=== PATIENT | male | born 1955 | race Caucasian/White ===

== ENCOUNTER 2020-06-05 15:19 | Inpatient (IN) | payer BC ==
[2020-06-05 16:14] LABS: ANION GAP 15.9 mEq/L (7-13); CHLORIDE,CL 94 mmol/L (98-107); SODIUM,NA 131 mmol/L (136-145)
[2020-06-05] MEDS ORDERED: Iopamidol 755 Mg/ML 100 ML Bottle IVPUSH ONE (16:58)
--- NOTE | 2020-06-05 17:38 | CT ---
EXAMINATION: Chest w Cont SEX: Male AGE: 65 years CLINICAL HISTORY: 65-year-old male ER with coughing who is 10 days post "Covid Infection". Abnormal serum D dimer (1900). No comparison imaging exams of the chest immediately available. Scan technique: Volume acquisition of data from the chest (bony thorax, lungs and mediastinum) obtained during intravenous administration of 66 cc nonionic Isovue 370 contrast at 5 cc/s via injector (PE study) while lying supine on the Siemens multislice scanner [place], [place]. All data archived in the PACS system for storage, reformatting axial/sagittal/coronal planes and study (lung, mediastinal and bone windows). Interpretation: ABNORMAL. 1. *Extensive interstitial consolidation extending peripherally throughout both lung padron. Appearance consistent with "COVID pneumonia". 2. No lung mass or underlying hilar/mediastinal lymphadenopathy. 3. Prominent cardiac silhouette but no pericardial effusions. No pulmonary vascular congestion, alveolar edema or dependent pleural fluid accumulation (pleural effusions). 4. Normal caliber thoracic aorta. Mild kyphosis, multilevel disc disease and hypertrophic spondylosis dorsal spine. No pathologic skeletal lesion, thoracic fracture or dislocation. 5. Upper abdominal viscera unremarkable. 6. No pneumothorax or pneumomediastinum.
--- NOTE | 2020-06-05 18:03 | EDM.PDOC ---
Scribed by Yeni Conte 06/05/20 [id number] for Cesia Donahue NP ED HPI GENERAL MEDICAL PROBLEM - General Stated Complaint: SENT FROM [facility] Time Seen by Provider: 06/05/20 16:55 Source of Information: Reports: Patient, RN Notes Reviewed History Limitations: Reports: No Limitations - History of Present Illness INITIAL COMMENTS - FREE TEXT/NARRATIVE: Patient is a 65-year-old male who presents to ED with complaint that his symptoms began on 05/22/20. He was tested on 05/26/20. He is off quarantine. He has increased shortness of breath for the last few days. He has had chills on and off. He has nausea and decreased appetite. No vomiting or diarrhea. Onset: Gradual Duration: Constant Location: Reports: Chest Quality: Reports: Ache Severity: Severe Improves with: Reports: None Worsens with: Reports: None Associated Symptoms: Reports: No Other Symptoms - Related Data Allergies Allergy/AdvReac Type Severity Reaction Status Date / Time No Known Allergies Allergy Verified 06/05/20 15:51 Home Meds: Home Meds Lisinopril 5 mg PO DAILY 08/03/14 [History] atorvaSTATin Calcium [Atorvastatin Calcium] 20 mg PO BEDTIME 08/03/14 [History] glyBURIDE [Glyburide] 10 mg PO BIDMEALS 08/03/14 [History] metFORMIN [Glucophage] 1,000 mg PO BIDMEALS 08/03/14 [History] Aspirin [Aspirin EC] 81 mg PO DAILY 06/05/20 [History] Canagliflozin [Invokana] 100 mg PO DAILY 06/05/20 [History] Famciclovir [Famvir] 1,500 mg PO ONETIME 06/05/20 [History] Ondansetron [Zofran ODT] 4 mg PO Q6HR PRN 06/05/20 [History] amLODIPine Besylate [Amlodipine Besylate] 5 mg PO DAILY 06/05/20 [History] Past Medical History Other HEENT History: wears glasses ED ROS GENERAL - Review of Systems Review Of Systems: Comprehensive ROS is negative, except as noted in HPI. ED EXAM, GENERAL - Physical Exam Exam: See Below Exam Limited By: No Limitations General Appearance: Lethargic (and weak) Eye Exam: Bilateral Eye: EOMI, Normal Inspection, PERRL Ears: Normal External Exam, Normal Canal, Hearing Grossly Normal, Normal TMs Nose: Normal Inspection, Normal Mucosa, No Blood Throat/Mouth: Normal Inspection, Normal Lips, Normal Teeth, Normal Gums, Normal Oropharynx, Normal Voice, No Airway Compromise Head: Atraumatic, Normocephalic Neck: Normal Inspection, Supple, Non-Tender, Full Range of Motion Respiratory/Chest: Crackles (throughout) Cardiovascular: Systolic Murmur GI/Abdominal: Normal Bowel Sounds, Soft, Non-Tender, No Organomegaly, No Distention, No Abnormal Bruit, No Mass (Male) Exam: Deferred Rectal (Males) Exam: Deferred Back Exam: Normal Inspection, Full Range of Motion, NT Extremities: Normal Inspection, Normal Range of Motion, Non-Tender, Normal Capillary Refill, No Pedal Edema Neurological: Alert, Oriented, CN II-XII Intact, Normal Cognition, Normal Gait, Normal Reflexes, No Motor/Sensory Deficits Psychiatric: Normal Affect, Normal Mood Skin Exam: Warm, Dry, Intact, Normal Color, No Rash Lymphatic: No Adenopathy #1 Interpretation EKG Date: 06/05/20 Time: 15:57 Rhythm: Other (sinus rhythm) Rate (Beats/Min): 89 [place]: Other (left anterior fascicular block) P-Wave: Present QRS: Other (abnormal R-wave progression, late transition) ST-T: Normal QT: Normal EKG Interpretation Comments: left ventricular hypertrophy Course - Vital Signs Last Recorded V/S: Last Vital Signs Temp 99 F 06/05/20 15:30 Pulse 95 06/05/20 15:30 Resp 28 H 06/05/20 15:30 BP 153/77 H 06/05/20 15:30 Pulse Ox 95 06/05/20 15:30 - Orders/Labs/Meds Orders: Active Orders 24 hr Category Date Time Status Admission Diagnosis [ADT] Routine ADT 06/05/20 17:54 Ordered Admission Status [Patient Status] [ADT] Routine ADT 06/05/20 17:54 Active EKG Documentation Completion [RC] STAT Care 06/05/20 15:46 Active CULTURE BLOOD [BC] Stat Lab 06/05/20 15:42 Received Blood Culture x2 Reflex Set [OM.PC] Stat Oth 06/05/20 15:46 Ordered Labs: Laboratory Tests 04/29/21 04/29/21 04/29/21 Range/Units 15:42 15:42 15:42 WBC 8.2 (5.0-10.0) 10^3/uL RBC 5.15 (4.6-6.2) 10^6/uL Hgb 15.8 (14.0-18.0) g/dL Hct 46.3 (40.0-54.0) % MCV 89.9 (80-100) fL MCH 30.7 (27.0-34.0) pg MCHC 34.1 (33.0-35.0) g/dL Plt Count 400 (150-450) 10^3/uL Neut % (Auto) 84.5 H (42.2-75.2) % Lymph % (Auto) 9.7 L (20.5-50.1) % [place] % (Auto) 5.3 (2-8) % Eos % (Auto) 0.4 L (1.0-3.0) % Baso % (Auto) 0.1 (0.0-1.0) % D-Dimer, Quantitative 1900 H (0-400) ng/mL Sodium 131 L (136-145) mmol/L Potassium 3.9 (3.5-5.1) mmol/L Chloride 94 L (98-107) mmol/L Carbon Dioxide 25 (21-32) mmol/L Anion Gap 15.9 H (7-13) mEq/L BUN 16 (7-18) mg/dL Creatinine 0.88 (0.70-1.30) mg/dL Est Cr Clr Drug Dosing TNP Estimated GFR (MDRD) > 60 BUN/Creatinine Ratio 18.2 (No establ ref range) Glucose 110 H (70-99) mg/dL Lactic Acid (0.4-2.0) mmol/L Calcium 8.5 (8.5-10.1) mg/dL Total Bilirubin 0.7 (0.2-1.0) mg/dL AST 40 H (15-37) U/L ALT 42 (16-63) U/L Alkaline Phosphatase 84 (46-116) U/L Troponin I < 0.017 (0.000-0.056) ng/mL C-Reactive Protein 18.2 H (0.0-0.9) mg/dL Total Protein 7.9 (6.4-8.2) g/dL Albumin 2.9 L (3.4-5.0) g/dL Globulin 5.0 Albumin/Globulin Ratio 0.58 06/05/20 Range/Units 15:42 WBC (5.0-10.0) 10^3/uL RBC (4.6-6.2) 10^6/uL Hgb (14.0-18.0) g/dL Hct (40.0-54.0) % MCV (80-100) fL MCH (27.0-34.0) pg MCHC (33.0-35.0) g/dL Plt Count (150-450) 10^3/uL Neut % (Auto) (42.2-75.2) % Lymph % (Auto) (20.5-50.1) % [place] % (Auto) (2-8) % Eos % (Auto) (1.0-3.0) % Baso % (Auto) (0.0-1.0) % D-Dimer, Quantitative (0-400) ng/mL Sodium (136-145) mmol/L Potassium (3.5-5.1) mmol/L Chloride (98-107) mmol/L Carbon Dioxide (21-32) mmol/L Anion Gap (7-13) mEq/L BUN (7-18) mg/dL Creatinine (0.70-1.30) mg/dL Est Cr Clr Drug Dosing Estimated GFR (MDRD) BUN/Creatinine Ratio (No establ ref range) Glucose (70-99) mg/dL Lactic Acid 1.5 (0.4-2.0) mmol/L Calcium (8.5-10.1) mg/dL Total Bilirubin (0.2-1.0) mg/dL AST (15-37) U/L ALT (16-63) U/L Alkaline Phosphatase (46-116) U/L Troponin I (0.000-0.056) ng/mL C-Reactive Protein (0.0-0.9) mg/dL Total Protein (6.4-8.2) g/dL Albumin (3.4-5.0) g/dL Globulin Albumin/Globulin Ratio Meds: Medications Discontinued Medications Generic Name Dose Route Start Last Admin Trade Name Freq PRN Reason Stop Dose Admin Iopamidol 100 ml 06/05/20 16:58 06/05/20 17:25 Iopamidol 755 Mg/Ml 100 Ml Bottle IVPUSH 06/05/20 16:59 66 ml ONETIME ONE Administration - Radiology Interpretation Free Text/Narrative:: Chest CT: Extensive interstitial consolidation extending peripherally throughout both lung padron. Appearance consistent with "COVID pneumonia". No lung mass or underlying hilar/mediastinal lymphadenopathy. Prominent cardiac silhouette but no pericardial effusions. No pulmonary vascular congestion, alveolar edema or dependent pleural fluid accumulation (pleural effusions). Normal caliber thoracic aorta. Mild kyphosis, multilevel disc disease and hypertrophic spondylosis dorsal spine. No pathologic skeletal lesion, thoracic fracture or dislocation. Upper abdominal viscera unremarkable. No pneumothorax or pneumomediastinum. See rad report. - Re-Assessments/Exams Free Text/Narrative Re-Assessment/Exam: 06/05/20 18:01 Discussed patient case with Dr. Hand who agreed to accept the patient for inpatient admission. Departure - Departure Time of Disposition: 18:02 Disposition: Admitted As Inpatient 67 Condition: Fair Clinical Impression: Pneumonia due to COVID-19 virus - Discharge Information *PRESCRIPTION DRUG MONITORING PROGRAM REVIEWED*: No *COPY OF PRESCRIPTION DRUG MONITORING REPORT IN PATIENT SOFIA: No Sepsis Event Note (ED) - Focused Exam Vital Signs: Vital Signs Temp Pulse Resp BP Pulse Ox 06/05/20 15:30 99 F 95 28 H 153/77 H 95 - My Orders Last 24 Hours: My Active Orders 06/05/20 15:42 CULTURE BLOOD [BC] Stat 06/05/20 15:46 EKG Documentation Completion [RC] STAT Blood Culture x2 Reflex Set [OM.PC] Stat 06/05/20 17:54 Admission Diagnosis [ADT] Routine Admission Status [Patient Status] [ADT] Routine - Assessment/Plan Last 24 Hours: My Active Orders 06/05/20 15:42 CULTURE BLOOD [BC] Stat 06/05/20 15:46 EKG Documentation Completion [RC] STAT Blood Culture x2 Reflex Set [OM.PC] Stat 06/05/20 17:54 Admission Diagnosis [ADT] Routine Admission Status [Patient Status] [ADT] Routine I have read and agree with the documentation that has been completed regarding this visit. By signing this record, I attest that the documentation was comp leted in my physical presence and is an accurate record of the encounter.
[2020-06-05] MEDS ORDERED: Ketorolac 30 MG/ML SDV IVPUSH PRN (18:13)
[2020-06-05] MEDS ORDERED: Acetaminophen 325 MG Tab PO PRN (18:13)
[2020-06-05] MEDS ORDERED: Ondansetron 4 MG Tab.DIS PO PRN (18:13)
[2020-06-05] MEDS ORDERED: REMDESIVIR 200 MG in Sodium Chloride 0.9% 250 ML IV ONE (18:17)
[2020-06-05] MEDS: Enoxaparin 40 MG/0.4 ML Syringe SUBCUT SCH (19:46)
[2020-06-05] MEDS: Sodium Chloride 0.9% 10 ML Syringe FLUSH PRN (19:48)
[2020-06-05] MEDS: Benzocaine/Cetylpyridinium/Menthol Lozenge MUCMEM PRN ×2 (22:56→23:33)
[2020-06-06 06:30] LABS: CHLORIDE,CL 95 mmol/L (98-107); SODIUM,NA 132 mmol/L (136-145)
[2020-06-06] MEDS: Enoxaparin 40 MG/0.4 ML Syringe SUBCUT SCH (08:27)
[2020-06-06] MEDS ORDERED: Enoxaparin 40 MG/0.4 ML Syringe SUBCUT ONE (09:15)
--- NOTE | 2020-06-06 09:24 | PCM.HP ---
H&P History of Present Illness - General Date of Service: 06/05/20 Admit Problem/Dx: Admission Diagnosis/Problem Admission Diagnosis/Problem Pneumonia - History of Present Illness Initial Comments - Free Text/Narative: Reuben is a 65-year-old man who presented to the ER this afternoon with 1 day history of worsening shortness of breath and severe cough. He and his were found to be positive for COVID-19 on May 26, 2020. He states that the first few days after this, he did have more cough and cold type symptoms, then started to feel somewhat better. However, about 24 hours ago, he started feeling very fatigued, having some body aches and chills, and now this morning developed severe shortness of breath. They were both seen at [facility] clinic yesterday, were told there was no issues and were sent home. His reports that they were not given any education as far as what to watch out for for COVID-19, were not given any kind of supplies at home including albuterol. Reuben reports a past medical history of type 2 diabetes mellitus, for which he is on glyburide, Metformin, and Invokana; essential hypertension, for which he is on lisinopril and amlodipine. Abdominal Pain Score (Numeric/FACES): 0 - Related Data Allergies/Adverse Reactions: Allergies Allergy/AdvReac Type Severity Reaction Status Date / Time No Known Allergies Allergy Verified 06/05/20 21:00 Home Medications: Home Meds Lisinopril 5 mg PO DAILY 08/03/14 [History] atorvaSTATin Calcium [Atorvastatin Calcium] 20 mg PO BEDTIME 08/03/14 [History] glyBURIDE [Glyburide] 10 mg PO BIDMEALS 08/03/14 [History] metFORMIN [Glucophage] 1,000 mg PO BIDMEALS 08/03/14 [History] Aspirin [Aspirin EC] 81 mg PO DAILY 06/05/20 [History] Canagliflozin [Invokana] 100 mg PO DAILY 06/05/20 [History] Ondansetron [Zofran ODT] 4 mg PO Q8H PRN 06/05/20 [History] amLODIPine Besylate [Amlodipine Besylate] 5 mg PO DAILY 06/05/20 [History] Past Medical History HEENT History: Reports: Hard of Hearing, Impaired Vision Other HEENT History: wears glasses Cardiovascular History: Reports: High Cholesterol, Hypertension Musculoskeletal History: Reports: Arthritis, Other (See Below) Other Musculoskeletal History: degenerative disc disease. lumbar disc herniation w/radiculopathy. stenosis of lumbar region Endocrine/Metabolic History: Reports: Diabetes, Type II - Infectious Disease History Infectious Disease History: Reports: Novel Coronavirus - Past Surgical History GI Surgical History: Reports: Colonoscopy Male Surgical History: Reports: Vasectomy Social & Family History - Family History Family Medical History: No Pertinent Family History - Tobacco Use Tobacco Use Status *Q: Never Tobacco User Second Hand Smoke Exposure: No - Caffeine Use Caffeine Use: Reports: Coffee - Alcohol Use Days Per Week of Alcohol Use: 3 Number of Drinks Per Day: 3 Total Drinks Per Week: 9 - Recreational Drug Use Recreational Drug Use: No H&P Review of Systems - Review of Systems: Review Of Systems: See Below Review of Systems Comment:: General: See HPI HEENT: No headache or vertigo, no difficulty with speaking or swallowing Cardiovascular: No chest pain or palpitations, no orthopnea or PND Respiratory: See HPI Gastrointestinal: No nausea or vomiting, no diarrhea or constipation, no hematochezia or melena Endocrine: No abnormal rashing or bruising, no intolerance to heat or cold Integumentary: No lesions or rashes Musculoskeletal: No myalgias or arthralgias Psychological: No increased anxiety or depressive type symptoms Rest of the review of systems is complete and negative Exam - Exam Exam: See Below - Vital Signs Vital Signs: Last Vital Signs Temp 98.9 F 06/06/20 08:00 Pulse 83 06/06/20 08:00 Resp 28 H 06/06/20 08:00 BP 146/69 H 06/06/20 08:00 Pulse Ox 97 06/06/20 08:00 Weight: 174 lb - Exam Physical Exam Comments:: General: Reuben is a 65-year-old man who appears quite uncomfortable with his breathing, but who does not appear to actually be in respiratory distress. His respiratory rate is around 20-25, he is not using any accessory muscles to breathe. Oropharynx is clear, mucous membranes are moist Neck: Supple, no lymphadenopathy Heart: Regular rate and rhythm, 1 out of 6 systolic murmur heard over the left sternal border Lungs: Widespread rhonchi and crackles in both bases. He has fairly good lung sounds at the apices, no expiratory wheezing heard PA and lateral chest x-ray done in the ER shows a large amount of infiltrate and congestion As his D-dimer was 1900, ER did do a CT of the chest, it did not show any emboli or areas of pneumonia - Patient Data Lab Results Last 24 hrs: Laboratory Results - last 24 hr 06/05/20 06/05/20 06/05/20 Range/Units 15:42 15:42 15:42 WBC 8.2 (5.0-10.0) 10^3/uL RBC 5.15 (4.6-6.2) 10^6/uL Hgb 15.8 (14.0-18.0) g/dL Hct 46.3 (40.0-54.0) % MCV 89.9 (80-100) fL MCH 30.7 (27.0-34.0) pg MCHC 34.1 (33.0-35.0) g/dL Plt Count 400 (150-450) 10^3/uL Neut % (Auto) 84.5 H (42.2-75.2) % Lymph % (Auto) 9.7 L (20.5-50.1) % [place] % (Auto) 5.3 (2-8) % Eos % (Auto) 0.4 L (1.0-3.0) % Baso % (Auto) 0.1 (0.0-1.0) % D-Dimer, Quantitative 1900 H (0-400) ng/mL Sodium 131 L (136-145) mmol/L Potassium 3.9 (3.5-5.1) mmol/L Chloride 94 L (98-107) mmol/L Carbon Dioxide 25 (21-32) mmol/L Anion Gap 15.9 H (7-13) mEq/L BUN 16 (7-18) mg/dL Creatinine 0.88 (0.70-1.30) mg/dL Est Cr Clr Drug Dosing TNP Estimated GFR (MDRD) > 60 BUN/Creatinine Ratio 18.2 (No establ ref range) Glucose 110 H (70-99) mg/dL POC Glucose (70-99) mg/dL Lactic Acid (0.4-2.0) mmol/L Calcium 8.5 (8.5-10.1) mg/dL Total Bilirubin 0.7 (0.2-1.0) mg/dL AST 40 H (15-37) U/L ALT 42 (16-63) U/L Alkaline Phosphatase 84 (46-116) U/L Troponin I < 0.017 (0.000-0.056) ng/mL C-Reactive Protein 18.2 H (0.0-0.9) mg/dL Total Protein 7.9 (6.4-8.2) g/dL Albumin 2.9 L (3.4-5.0) g/dL Globulin 5.0 Albumin/Globulin Ratio 0.58 06/05/20 06/06/20 06/06/20 Range/Units 15:42 05:45 05:45 WBC (5.0-10.0) 10^3/uL RBC (4.6-6.2) 10^6/uL Hgb (14.0-18.0) g/dL Hct (40.0-54.0) % MCV (80-100) fL MCH (27.0-34.0) pg MCHC (33.0-35.0) g/dL Plt Count (150-450) 10^3/uL Neut % (Auto) (42.2-75.2) % Lymph % (Auto) (20.5-50.1) % [place] % (Auto) (2-8) % Eos % (Auto) (1.0-3.0) % Baso % (Auto) (0.0-1.0) % D-Dimer, Quantitative 2300 H (0-400) ng/mL Sodium 132 L (136-145) mmol/L Potassium 4.0 (3.5-5.1) mmol/L Chloride 95 L (98-107) mmol/L Carbon Dioxide 24 (21-32) mmol/L Anion Gap 17.0 H (7-13) mEq/L BUN 16 (7-18) mg/dL Creatinine 0.83 (0.70-1.30) mg/dL Est Cr Clr Drug Dosing 86.99 Estimated GFR (MDRD) > 60 BUN/Creatinine Ratio 19.3 (No establ ref range) Glucose 120 H (70-99) mg/dL POC Glucose (70-99) mg/dL Lactic Acid 1.5 (0.4-2.0) mmol/L Calcium 8.0 L (8.5-10.1) mg/dL Total Bilirubin 0.8 (0.2-1.0) mg/dL AST 38 H (15-37) U/L ALT 41 (16-63) U/L Alkaline Phosphatase 79 (46-116) U/L Troponin I (0.000-0.056) ng/mL C-Reactive Protein (0.0-0.9) mg/dL Total Protein 6.3 L (6.4-8.2) g/dL Albumin 2.7 L (3.4-5.0) g/dL Globulin 3.6 Albumin/Globulin Ratio 0.75 04// Range/Units 08:18 WBC (5.0-10.0) 10^3/uL RBC (4.6-6.2) 10^6/uL Hgb (14.0-18.0) g/dL Hct (40.0-54.0) % MCV (80-100) fL MCH (27.0-34.0) pg MCHC (33.0-35.0) g/dL Plt Count (150-450) 10^3/uL Neut % (Auto) (42.2-75.2) % Lymph % (Auto) (20.5-50.1) % [place] % (Auto) (2-8) % Eos % (Auto) (1.0-3.0) % Baso % (Auto) (0.0-1.0) % D-Dimer, Quantitative (0-400) ng/mL Sodium (136-145) mmol/L Potassium (3.5-5.1) mmol/L Chloride (98-107) mmol/L Carbon Dioxide (21-32) mmol/L Anion Gap (7-13) mEq/L BUN (7-18) mg/dL Creatinine (0.70-1.30) mg/dL Est Cr Clr Drug Dosing Estimated GFR (MDRD) BUN/Creatinine Ratio (No establ ref range) Glucose (70-99) mg/dL POC Glucose 112 H (70-99) mg/dL Lactic Acid (0.4-2.0) mmol/L Calcium (8.5-10.1) mg/dL Total Bilirubin (0.2-1.0) mg/dL AST (15-37) U/L ALT (16-63) U/L Alkaline Phosphatase (46-116) U/L Troponin I (0.000-0.056) ng/mL C-Reactive Protein (0.0-0.9) mg/dL Total Protein (6.4-8.2) g/dL Albumin (3.4-5.0) g/dL Globulin Albumin/Globulin Ratio Result Diagrams: 06/05/20 15:42 06/06/20 05:45 *Q Meaningful Use (ADM) - VTE Risk Assess *Q Each Risk Factor Represents 2 Points: Age 60 - 74 Years, Patient confined to bed greater than 72 hours Total Score 2 Point Risk Factors: 4 - Problem List (1) Pneumonia due to COVID-19 virus SNOMED Code(s): 738131532442962205 ICD Code: U07.1 - COVID-19; J12.82 - PNEUMONIA DUE TO CORONAVIRUS DISEASE 2018 Status: Acute Priority: High Current Visit: Yes Onset Date: ~ 06/04/20 (2) Essential hypertension SNOMED Code(s): 44326545 ICD Code: I10 - ESSENTIAL (PRIMARY) HYPERTENSION Status: Chronic Current Visit: Yes (3) Type 2 diabetes mellitus SNOMED Code(s): 72118576 ICD Code: E11.9 - TYPE 2 DIABETES MELLITUS WITHOUT COMPLICATIONS Status: Chronic Priority: Medium Current Visit: Yes (4) Hyperlipidemia associated with type 2 diabetes mellitus SNOMED Code(s): 508047006524 ICD Code: E11.69 - TYPE 2 DIABETES MELLITUS WITH OTHER SPECIFIED COMPLICATION; E78.5 - HYPERLIPIDEMIA, UNSPECIFIED Status: Chronic Priority: Medium Current Visit: Yes Problem List Initiated/Reviewed/Updated: Yes Orders Last 24hrs: Active Orders 24 hr Category Date Time Status Admission Diagnosis [ADT] Routine ADT 06/05/20 17:54 Ordered Admission Status [Patient Status] [ADT] Routine ADT 06/05/20 17:54 Active Activity as Tolerated [RC] .Routine Care 06/05/20 21:21 Active Blood Glucose Check, Bedside [RC] BIDMEALS Care 06/05/20 18:16 Active Cardiac Monitoring [RC] Care 06/05/20 18:13 Active Oxygen Therapy [RC] PRN Care 06/05/20 18:13 Active Pulse Oximetry [RC] CONTINUOUS Care 06/05/20 18:13 Active VTE/DVT Education [RC] 08,20 Care 06/05/20 18:13 Active Vital Signs [RC] 20,00,04,08,12,16 Care 06/05/20 18:13 Active Regular Diet [DIET] Diet 06/06/20 Breakfast Active Chest 1V Frontal [CR] Routine Exams 06/06/20 08:00 Taken BILIRUBIN DIRECT [CHEM] AM Lab 06/07/20 05:11 Ordered BILIRUBIN DIRECT [CHEM] AM Lab 06/08/20 05:11 Ordered BILIRUBIN DIRECT [CHEM] AM Lab 06/09/20 05:11 Ordered BILIRUBIN DIRECT [CHEM] AM Lab 06/10/20 05:11 Ordered BILIRUBIN DIRECT [CHEM] AM Lab 06/11/20 05:11 Ordered COMPREHENSIVE METABOLIC PN,CMP [CHEM] AM Lab 06/07/20 05:11 Ordered COMPREHENSIVE METABOLIC PN,CMP [CHEM] AM Lab 06/08/20 05:11 Ordered COMPREHENSIVE METABOLIC PN,CMP [CHEM] AM Lab 06/09/20 05:11 Ordered COMPREHENSIVE METABOLIC PN,CMP [CHEM] AM Lab 06/10/20 05:11 Ordered CULTURE BLOOD [BC] Stat Lab 06/05/20 15:42 Received TROPONIN I [CHEM] Stat Lab 06/06/20 09:05 Ordered Acetaminophen [TylenoL] Med 06/05/20 18:13 Active 650 mg PO Q4H PRN Benzocaine/Cetylpyrd/Menthol [Cepacol Sore Throat] Med 06/05/20 22:32 Active 1 lozenge MUCMEM Q1H PRN Enoxaparin [Lovenox] Med 06/06/20 21:00 Active 80 mg SUBCUT Q12HR Ketorolac [Toradol] Med 06/05/20 18:13 Active 30 mg IVPUSH Q6H PRN Ondansetron [Zofran ODT] Med 06/05/20 18:13 Active 4 mg PO Q6H PRN Remdesivir 100 mg Med 06/06/20 18:00 Active Sodium Chloride 0.9% [Normal Saline] 100 ml IV Q24H Sodium Chloride 0.9% [Saline Flush] Med 06/05/20 18:32 Active 10 ml FLUSH ASDIRECTED PRN dexAMETHasone [Decadron] Med 06/06/20 09:00 Active 6 mg IVPUSH DAILY Blood Culture x2 Reflex Set [OM.PC] Stat Oth 06/05/20 15:46 Ordered Saline Lock Insert [OM.PC] Routine Oth 06/05/20 18:32 Ordered Resuscitation Status Routine Resus Stat 06/05/20 18:13 Ordered Medication Orders Acetaminophen (Acetaminophen 325 Mg Tab) 650 mg PO Q4H PRN PRN Reason: Pain (Mild 1-3)/fever Benzocaine/Menthol (Benzocaine/Cetylpyridinium/Menthol Lozenge) 1 lozenge MUCMEM Q1H PRN PRN Reason: Cough Last Admin: 06/05/20 23:33 Dose: 1 lozenge Documented by: Admin: 06/05/20 22:56 Dose: 1 lozenge Documented by: IZABELLA Dexamethasone (Dexamethasone 4 Mg/Ml Sdv) 6 mg IVPUSH DAILY [facility] Stop: 06/12/20 09:01 Enoxaparin Sodium (Enoxaparin 80 Mg/0.8 Ml Syringe) 80 mg SUBCUT Q12HR JENY Remdesivir 100 mg/ Sodium (Chloride) 100 mls @ 100 mls/hr IV Q24H [facility] Stop: 06/09/20 18:59 Ketorolac Tromethamine (Ketorolac 30 Mg/Ml Sdv) 30 mg IVPUSH Q6H PRN PRN Reason: Pain (moderate 4-6) Ondansetron HCl (Ondansetron 4 Mg Tab.Dis) 4 mg PO Q6H PRN PRN Reason: nausea, able to take PO Sodium Chloride (Sodium Chloride 0.9% 10 Ml Syringe) 10 ml FLUSH ASDIRECTED PRN PRN Reason: Keep Vein Open Last Admin: 06/05/20 19:48 Dose: 10 ml Documented by: IZABELLA Assessment/Plan Comment:: Assessment: 1. Severe COVID-19 pneumonia 2. Essential hypertension 3. Type 2 diabetes mellitus, currently on 3 oral agents 4. Hyperlipidemia Plan: 1. He is admitted to acute inpatient 2. He will be placed on high flow nasal cannula starting at a rate of 30 L/min and having respiratory therapy try to start him at is low of an FiO2 as possible, but maintaining oxygen saturations above 92% 3. Remdesivir IV per protocol, 200 mg IV now and 100 mg IV daily x4 additional days 4. Dexamethasone, 6 mg IV daily 5. We will have respiratory therapy work with him with incentive spirometry, prone posturing when possible 6. Will check metabolic panel and bilirubin daily per remdesivir protocol; will also check D-dimer daily for the next few days as his initial D-dimer was high 7. We will leave him on cardiac telemetry monitoring for the first 24 hours, if that remains stable we may discontinue this and leave only continuous O2 sat monitoring in place
[2020-06-06] MEDS: Dexamethasone 4 MG/ML SDV IVPUSH SCH (10:14)
[2020-06-06] MEDS ORDERED: Albuterol 0.083% 2.5 MG/3 ML Neb Soln NEB PRN (11:44)
[2020-06-06] MEDS: Albuterol 6.7 GM Inhaler INH PRN ×4 (12:04→20:53)
--- NOTE | 2020-06-06 12:19 | CR ---
EXAMINATION: Chest 1V Frontal SEX: Male AGE: 65 years CLINICAL HISTORY: 65-year-old male hospitalized for COVID19 pneumonia[address] C[address] chest 05 June 2020. Interpretation: AP portable chest abnormal. *Extensive bilateral peripheral interstitial consolidation ("groundglass" infiltrates) characteristic of "Covid pneumonia". Normal cardiac silhouette. No pulmonary vascular congestion, alveolar edema or dependent pleural effusion. No lung mass or hilar lymphadenopathy. No atelectasis or lobar collapse. No pneumothorax or pneumomediastinum.
[2020-06-06] MEDS ORDERED: Glucagon,Human Recombinant 1 MG Vial IM PRN (17:22)
[2020-06-06] MEDS ORDERED: 50% Dextrose in Water 50 ML Syringe IV PRN (17:22)
[2020-06-06] MEDS ORDERED: Insulin Lispro 100 Units/ML 3 ML Vial SUBCUT ONE (17:22)
[2020-06-06] MEDS ORDERED: Ondansetron 4 MG Tab.DIS PO PRN (17:43)
[2020-06-06] MEDS: REMDESIVIR 100 MG in Sodium Chloride 0.9% 100 ML IV SCH (18:11)
[2020-06-06] MEDS: metFORMIN 500 MG Tab PO SCH (18:40)
[2020-06-06] MEDS: Lisinopril 5 MG Tab PO SCH (18:59)
[2020-06-06] MEDS: Aspirin 81 MG Tab.EC PO SCH (19:00)
[2020-06-06] MEDS: glyBURIDE 5 MG Tab PO SCH (19:00)
[2020-06-06] MEDS: amLODIPine 5 MG Tab PO SCH (19:00)
[2020-06-06] MEDS: Sodium Chloride 0.9% 10 ML Syringe FLUSH PRN ×4 (20:42→20:47)
[2020-06-06] MEDS: CANAGLIFLOZIN 100 MG PO SCH (20:45)
[2020-06-06] MEDS: atorvaSTATin 20 MG Tab PO SCH (20:46)
[2020-06-06] MEDS: Enoxaparin 80 MG/0.8 ML Syringe SUBCUT SCH (20:47)
--- NOTE | 2020-06-06 22:16 | PCM.PN ---
- General Info Date of Service: 06/06/20 Admission Dx/Problem (Free Text): Admission Diagnosis/Problem Admission Diagnosis/Problem Pneumonia Subjective Update: Reuben is a 65-year-old man who was hospitalized here with severe COVID-19 pneumonia. He is on IV remdesivir as well as dexamethasone. He is receiving respiratory support via high flow nasal cannula. Throughout most of the day today he was on an older model high flow machine that was difficult to interpret what settings he was on. Later in the afternoon, he was switched over to the airVo system, and began to improve at that point. Reuben reports to me today that he feels very poorly, he has a fairly significant cough that is quite bothersome to him. He states that his throat is getting sore because of this. - Patient Data Vitals - Most Recent: Last Vital Signs Temp 97.7 F 06/06/20 20:00 Pulse 61 06/06/20 20:00 Resp 24 H 06/06/20 20:00 BP 125/67 06/06/20 20:00 Pulse Ox 97 06/06/20 20:00 Weight - Most Recent: 174 lb I&O - Last 24 Hours: Intake & Output 06/06/20 06/06/20 06/06/20 06:59 14:59 22:59 Intake Total 500 220 200 Output Total 200 Balance 500 20 200 Lab Results Last 24 Hours: Laboratory Results - last 24 hr 06/06/20 06/06/20 06/06/20 Range/Units 05:45 05:45 05:45 D-Dimer, Quantitative 2300 H (0-400) ng/mL Sodium 132 L (136-145) mmol/L Potassium 4.0 (3.5-5.1) mmol/L Chloride 95 L (98-107) mmol/L Carbon Dioxide 24 (21-32) mmol/L Anion Gap 17.0 H (7-13) mEq/L BUN 16 (7-18) mg/dL Creatinine 0.83 (0.70-1.30) mg/dL Est Cr Clr Drug Dosing 86.99 mL/min Estimated GFR (MDRD) > 60 BUN/Creatinine Ratio 19.3 (No establ ref range) Glucose 120 H (70-99) mg/dL POC Glucose (70-99) mg/dL Calcium 8.0 L (8.5-10.1) mg/dL Total Bilirubin 0.8 (0.2-1.0) mg/dL AST 38 H (15-37) U/L ALT 41 (16-63) U/L Alkaline Phosphatase 79 (46-116) U/L Troponin I < 0.017 (0.000-0.056) ng/mL Total Protein 6.3 L (6.4-8.2) g/dL Albumin 2.7 L (3.4-5.0) g/dL Globulin 3.6 Albumin/Globulin Ratio 0.75 06/06/20 06/06/20 Range/Units 08:18 16:53 D-Dimer, Quantitative (0-400) ng/mL Sodium (136-145) mmol/L Potassium (3.5-5.1) mmol/L Chloride (98-107) mmol/L Carbon Dioxide (21-32) mmol/L Anion Gap (7-13) mEq/L BUN (7-18) mg/dL Creatinine (0.70-1.30) mg/dL Est Cr Clr Drug Dosing mL/min Estimated GFR (MDRD) BUN/Creatinine Ratio (No establ ref range) Glucose (70-99) mg/dL POC Glucose 112 H 309 H (70-99) mg/dL Calcium (8.5-10.1) mg/dL Total Bilirubin (0.2-1.0) mg/dL AST (15-37) U/L ALT (16-63) U/L Alkaline Phosphatase (46-116) U/L Troponin I (0.000-0.056) ng/mL Total Protein (6.4-8.2) g/dL Albumin (3.4-5.0) g/dL Globulin Albumin/Globulin Ratio Micah Results Last 24 Hours: Microbiology 06/05/20 15:42 Aerobic Blood Culture - Preliminary Blood - Venous - Iv Start NO GROWTH AFTER 1 DAY Anaerobic Blood Culture - Preliminary NO GROWTH AFTER 1 DAY Med Orders - Current: Current Medications Acetaminophen (Acetaminophen 325 Mg Tab) 650 mg PO Q4H PRN PRN Reason: Pain (Mild 1-3)/fever Albuterol (Albuterol 6.7 Gm Inhaler) 0 gm INH Q2H PRN PRN Reason: Shortness of Breath Last Admin: 06/06/20 20:53 Dose: 2 puff Documented by: Amlodipine Besylate (Amlodipine 5 Mg Tab) 5 mg PO DAILY [facility] Last Admin: 06/06/20 19:00 Dose: 5 mg Documented by: Aspirin (Aspirin 81 Mg Tab.Ec) 81 mg PO DAILY [facility] Last Admin: 06/06/20 19:00 Dose: 81 mg Documented by: Atorvastatin Calcium (Atorvastatin 20 Mg Tab) 20 mg PO BEDTIME [facility] Last Admin: 06/06/20 20:46 Dose: 20 mg Documented by: Benzocaine/Menthol (Benzocaine/Cetylpyridinium/Menthol Lozenge) 1 lozenge MUCMEM Q1H PRN PRN Reason: Cough Last Admin: 06/05/20 23:33 Dose: 1 lozenge Documented by: Dexamethasone (Dexamethasone 4 Mg/Ml Sdv) 6 mg IVPUSH DAILY [facility] Stop: 06/12/20 09:01 Last Admin: 06/06/20 10:14 Dose: 6 mg Documented by: Dextrose/Water (50% Dextrose In Water 50 Ml Syringe) 50 ml IV Q15M PRN PRN Reason: Hypoglycemia Enoxaparin Sodium (Enoxaparin 80 Mg/0.8 Ml Syringe) 80 mg SUBCUT Q12HR [facility] Last Admin: 06/06/20 20:47 Dose: 80 mg Documented by: Glucagon (Glucagon,Human Recombinant 1 Mg Vial) 1 mg IM Q15M PRN PRN Reason: Hypoglycemia Glyburide (Glyburide 5 Mg Tab) 10 mg PO BIDMEALS [facility] Last Admin: 06/06/20 19:00 Dose: 10 mg Documented by: Remdesivir 100 mg/ Sodium (Chloride) 100 mls @ 100 mls/hr IV Q24H [facility] Stop: 06/09/20 18:59 Last Infusion: 06/06/20 19:23 Dose: Infused Documented by: Ketorolac Tromethamine (Ketorolac 30 Mg/Ml Sdv) 30 mg IVPUSH Q6H PRN PRN Reason: Pain (moderate 4-6) Lisinopril (Lisinopril 5 Mg Tab) 5 mg PO DAILY [facility] Last Admin: 06/06/20 18:59 Dose: 5 mg Documented by: Metformin HCl (Metformin 500 Mg Tab) 1,000 mg PO BIDMEALS [facility] Last Admin: 06/06/20 18:40 Dose: Not Given Documented by: Canagliflozin [ Invokana] 100 Mg TabletPt Own 100 mg PO DAILY [facility] Last Admin: 06/06/20 20:45 Dose: 100 mg Documented by: Ondansetron HCl (Ondansetron 4 Mg Tab.Dis) 4 mg PO Q6H PRN PRN Reason: nausea, able to take PO Sodium Chloride (Sodium Chloride 0.9% 10 Ml Syringe) 10 ml FLUSH ASDIRECTED PRN PRN Reason: Keep Vein Open Last Admin: 06/06/20 20:47 Dose: 10 ml Documented by: Discontinued Medications Albuterol (Albuterol 0.083% 2.5 Mg/3 Ml Neb Soln) 2.5 mg NEB Q2HR PRN PRN Reason: Dyspnea Enoxaparin Sodium (Enoxaparin 40 Mg/0.4 Ml Syringe) 40 mg SUBCUT DAILY [facility] Last Admin: 06/06/20 08:27 Dose: 40 mg Documented by: Enoxaparin Sodium (Enoxaparin 40 Mg/0.4 Ml Syringe) 40 mg SUBCUT ONETIME ONE Stop: 06/06/20 09:16 Last Admin: 06/06/20 10:17 Dose: 40 mg Documented by: Remdesivir 200 mg/ Sodium (Chloride) 250 mls @ 250 mls/hr IV ONETIME ONE Stop: 06/05/20 19:16 Last Infusion: 06/05/20 21:45 Dose: Infused Documented by: Insulin Human Lispro (Insulin Lispro 100 Units/Ml 3 Ml Vial) 5 unit SUBCUT ONETIME ONE Stop: 06/06/20 17:23 Last Admin: 06/06/20 18:10 Dose: 5 units Documented by: Iopamidol (Iopamidol 755 Mg/Ml 100 Ml Bottle) 100 ml IVPUSH ONETIME ONE Stop: 06/05/20 16:59 Last Admin: 06/05/20 17:25 Dose: 66 ml Documented by: Ondansetron HCl (Ondansetron 4 Mg Tab.Dis) 4 mg PO Q8H PRN PRN Reason: Nausea - Exam Physical Findings Comments:: Exam at 0900: He was fairly tachypneic this morning, with a respiratory rate of 30 even with O2 sats of 100%. Respiratory therapy worked with him closely throughout the day, after replacing the machine that was running his high flow nasal cannula, they were able to get his respiratory rate reduced to 24 Oropharynx is clear, mucous membranes are moist; he is producing a lot of clear sputum today Heart: Regular rate and rhythm, 1 out of 6 systolic murmur heard over the left sternal border Lungs: Very poor air movement into both bases. I really do not hear any breath sounds at all in the lower segments. - Patient Data Lab Results Last 24 hrs: Laboratory Results - last 24 hr 06/06/20 06/06/20 06/06/20 Range/Units 05:45 05:45 05:45 D-Dimer, Quantitative 2300 H (0-400) ng/mL Sodium 132 L (136-145) mmol/L Potassium 4.0 (3.5-5.1) mmol/L Chloride 95 L (98-107) mmol/L Carbon Dioxide 24 (21-32) mmol/L Anion Gap 17.0 H (7-13) mEq/L BUN 16 (7-18) mg/dL Creatinine 0.83 (0.70-1.30) mg/dL Est Cr Clr Drug Dosing 86.99 mL/min Estimated GFR (MDRD) > 60 BUN/Creatinine Ratio 19.3 (No establ ref range) Glucose 120 H (70-99) mg/dL POC Glucose (70-99) mg/dL Calcium 8.0 L (8.5-10.1) mg/dL Total Bilirubin 0.8 (0.2-1.0) mg/dL AST 38 H (15-37) U/L ALT 41 (16-63) U/L Alkaline Phosphatase 79 (46-116) U/L Troponin I < 0.017 (0.000-0.056) ng/mL Total Protein 6.3 L (6.4-8.2) g/dL Albumin 2.7 L (3.4-5.0) g/dL Globulin 3.6 Albumin/Globulin Ratio 0.75 06/06/20 06/06/20 Range/Units 08:18 16:53 D-Dimer, Quantitative (0-400) ng/mL Sodium (136-145) mmol/L Potassium (3.5-5.1) mmol/L Chloride (98-107) mmol/L Carbon Dioxide (21-32) mmol/L Anion Gap (7-13) mEq/L BUN (7-18) mg/dL Creatinine (0.70-1.30) mg/dL Est Cr Clr Drug Dosing mL/min Estimated GFR (MDRD) BUN/Creatinine Ratio (No establ ref range) Glucose (70-99) mg/dL POC Glucose 112 H 309 H (70-99) mg/dL Calcium (8.5-10.1) mg/dL Total Bilirubin (0.2-1.0) mg/dL AST (15-37) U/L ALT (16-63) U/L Alkaline Phosphatase (46-116) U/L Troponin I (0.000-0.056) ng/mL Total Protein (6.4-8.2) g/dL Albumin (3.4-5.0) g/dL Globulin Albumin/Globulin Ratio Result Diagrams: 06/05/20 15:42 06/06/20 05:45 Micah Results Last 24 hrs: Microbiology 06/05/20 15:42 Aerobic Blood Culture - Preliminary Blood - Venous - Iv Start NO GROWTH AFTER 1 DAY Anaerobic Blood Culture - Preliminary NO GROWTH AFTER 1 DAY Sepsis Event Note - Evaluation Sepsis Screening Result: No Definite Risk - Focused Exam Vital Signs: Vital Signs Temp Pulse Resp BP BP BP Pulse Ox 06/06/20 20:00 97.7 F 61 24 H 125/67 97 06/06/20 19:00 135/65 06/06/20 18:59 135/65 06/06/20 18:57 97 F 64 135/65 97 06/06/20 18:13 97 06/06/20 12:00 98.2 F 74 30 H 128/58 L 100 - Problem List & Annotations (1) Pneumonia due to COVID-19 virus SNOMED Code(s): 621357272316987749 Code(s): U07.1 - COVID-19; J12.82 - PNEUMONIA DUE TO CORONAVIRUS DISEASE 2019 Status: Acute Priority: High Current Visit: Yes Onset Date: ~06/04/20 (2) Essential hypertension SNOMED Code(s): 91123030 Code(s): I10 - ESSENTIAL (PRIMARY) HYPERTENSION Status: Chronic Current Visit: Yes (3) Type 2 diabetes mellitus SNOMED Code(s): 02125828 Code(s): E11.9 - TYPE 2 DIABETES MELLITUS WITHOUT COMPLICATIONS Status: Chronic Priority: Medium Current Visit: Yes (4) Hyperlipidemia associated with type 2 diabetes mellitus SNOMED Code(s): 528700604172 Code(s): E11.69 - TYPE 2 DIABETES MELLITUS WITH OTHER SPECIFIED COMPLICATION; E78.5 - HYPERLIPIDEMIA, UNSPECIFIED Status: Chronic Priority: Medium Current Visit: Yes - Problem List Review Problem List Initiated/Reviewed/Updated: Yes - My Orders Last 24 Hours: My Active Orders 06/05/20 21:21 Activity as Tolerated [RC] .Routine 06/05/20 22:32 Benzocaine/Cetylpyrd/Menthol [Cepacol Sore Throat] 1 lozenge MUCMEM Q1H PRN 06/06/20 Breakfast Regular Diet [DIET] 06/06/20 09:00 dexAMETHasone [Decadron] 6 mg IVPUSH DAILY 06/06/20 11:35 Isolation [COMM] Stat 06/06/20 11:44 RT Aerosol Therapy [RC] ASDIRECTED 06/06/20 11:46 Albuterol [Proventil HFA] 0 gm INH Q2H PRN 06/06/20 11:47 RT Post Treatment Assessment [RC] Click to Edit RT Pre-Treatment Assessment [RC] Click to Edit 06/06/20 12:51 Nurse Communication: Isolation [RC] ASDIRECTED 06/06/20 17:22 Blood Glucose Check, Bedside [RC] QIDACANDBED Dextrose 50% in Water 50 ml IV Q15M PRN Glucagon,Human Recombinant [GlucaGen] 1 mg IM Q15M PRN 06/06/20 17:45 Aspirin [Halfprin] 81 mg PO DAILY amLODIPine [Norvasc] 5 mg PO DAILY lisinopriL [Prinivil] 5 mg PO DAILY 06/06/20 18:00 Remdesivir 100 mg Sodium Chloride 0.9% [Normal Saline] 100 ml IV Q24H glyBURIDE [Micronase] 10 mg PO BIDMEALS metFORMIN [Glucophage] 1,000 mg PO BIDMEALS 06/06/20 20:00 Canagliflozin [Invokana] 100 mg PO DAILY 06/06/20 21:00 Enoxaparin [Lovenox] 80 mg SUBCUT Q12HR atorvaSTATin [Lipitor] 20 mg PO BEDTIME 06/07/20 05:11 BILIRUBIN DIRECT [CHEM] AM C-REACTIVE PROTEIN [CHEM] AM COMPREHENSIVE METABOLIC PN,CMP [CHEM] AM D-DIMER QUANTITATIVE [COAG] AM FERRITIN [CHEM] AM LACTATE DEHYDROGENASE,LDH [CHEM] AM 06/07/20 08:00 Chest 2V [CR] Routine 06/08/20 05:11 BILIRUBIN DIRECT [CHEM] AM COMPREHENSIVE METABOLIC PN,CMP [CHEM] AM 06/09/20 05:11 BILIRUBIN DIRECT [CHEM] AM COMPREHENSIVE METABOLIC PN,CMP [CHEM] AM 06/10/20 05:11 BILIRUBIN DIRECT [CHEM] AM COMPREHENSIVE METABOLIC PN,CMP [CHEM] AM 06/11/20 05:11 BILIRUBIN DIRECT [CHEM] AM - Plan Plan:: Assessment: 1. Severe COVID-19 pneumonia 2. Essential hypertension 3. Type 2 diabetes mellitus, currently on 3 oral agents 4. Hyperlipidemia Plan: 1. Continue remdesivir and dexamethasone IV 2. Continue to attempt to titrate high flow nasal cannula when possible 3. Continue cardiopulmonary toileting, including prone positioning and incentive spirometry 4. We will recheck inflammatory markers in the a.m.
[2020-06-06] MEDS: Benzocaine/Cetylpyridinium/Menthol Lozenge MUCMEM PRN (22:33)
[2020-06-07] MEDS: Albuterol 6.7 GM Inhaler INH PRN (06:10)
[2020-06-07] MEDS: Benzocaine/Cetylpyridinium/Menthol Lozenge MUCMEM PRN ×3 (06:10→23:18)
[2020-06-07 06:53] LABS: ANION GAP 18.1 mEq/L (7-13); CHLORIDE,CL 98 mmol/L (98-107); SODIUM,NA 137 mmol/L (136-145)
[2020-06-07] MEDS: glyBURIDE 5 MG Tab PO SCH (09:00)
[2020-06-07] MEDS: Lisinopril 5 MG Tab PO SCH (09:01)
[2020-06-07] MEDS: metFORMIN 500 MG Tab PO SCH (09:01)
[2020-06-07] MEDS: Aspirin 81 MG Tab.EC PO SCH (09:01)
[2020-06-07] MEDS: Enoxaparin 80 MG/0.8 ML Syringe SUBCUT SCH ×2 (09:02→21:20)
[2020-06-07] MEDS: amLODIPine 5 MG Tab PO SCH (09:02)
[2020-06-07] MEDS: Dexamethasone 4 MG/ML SDV IVPUSH SCH (09:03)
[2020-06-07] MEDS: CANAGLIFLOZIN 100 MG PO SCH (09:05)
--- NOTE | 2020-06-07 09:12 | CR ---
PROCEDURE INFORMATION: Exam: XR Chest Exam date and time: 06/07/2020 8:52 AM Age: 65 years old Clinical indication: Shortness of breath TECHNIQUE: Imaging protocol: XR of the chest. Views: 1 view. COMPARISON: CR Chest 1V Frontal 06/06/2020 8:20 AM FINDINGS: Lungs: The lung volumes are decreased with vascular crowding secondary to elevation of the diaphragms which is likely on the basis of poor inspiratory effort. Moderate ground-glass airspace disease at the mid and lower lung padron bilaterally without change since the prior examination. Pleural spaces: Unremarkable. No pleural effusion. No pneumothorax. Heart/Mediastinum: Unremarkable. No cardiomegaly. Bones/joints: Unremarkable. IMPRESSION: Moderate ground-glass airspace disease at the mid and lower lung padron bilaterally without change since the prior examination.
[2020-06-07] MEDS ORDERED: Glucagon,Human Recombinant 1 MG Vial IM PRN (11:41)
[2020-06-07] MEDS ORDERED: 50% Dextrose in Water 50 ML Syringe IV PRN (11:41)
--- NOTE | 2020-06-07 11:51 | PCM.PN ---
- General Info Date of Service: 06/07/20 Admission Dx/Problem (Free Text): Admission Diagnosis/Problem Admission Diagnosis/Problem Pneumonia Subjective Update: No acute overnight events. No new specific nursing concerns. Remains on high flow oxygen delivery at 30 L/min and 60% FiO2 which has just been turned down to 50% FiO2. Patient states that he is feeling better day today, overall feeling better than when he came in. Denies any chest pain, chest pressure, pleurisy. Continues to have cough but nonproductive. No fever. Appetite continues to increase. Good p.o. intake. No abdominal discomfort, or difficulties with voiding. - Review of Systems General: Denies: Fever Pulmonary: Reports: Cough. Denies: Sputum, Hemoptysis, Wheezing Cardiovascular: Reports: No Symptoms Gastrointestinal: Reports: No Symptoms Genitourinary: Reports: No Symptoms Musculoskeletal: Reports: No Symptoms - Patient Data Vitals - Most Recent: Last Vital Signs Temp 97.6 F 06/07/20 07:58 Pulse 67 06/07/20 11:26 Resp 29 H 06/07/20 11:26 BP 129/57 L 06/07/20 11:26 Pulse Ox 94 L 06/07/20 11:26 Weight - Most Recent: 174 lb I&O - Last 24 Hours: Intake & Output 06/06/20 06/07/20 06/07/20 22:59 06:59 14:59 Intake Total 900 600 Balance 900 600 Lab Results Last 24 Hours: Laboratory Results - last 24 hr 06/06/20 06/06/20 06/07/20 Range/Units 16:53 22:31 06:00 D-Dimer, Quantitative (0-400) ng/mL Sodium 137 (136-145) mmol/L Potassium 4.1 (3.5-5.1) mmol/L Chloride 98 (98-107) mmol/L Carbon Dioxide 25 (21-32) mmol/L Anion Gap 18.1 H (7-13) mEq/L BUN 21 H (7-18) mg/dL Creatinine 0.74 (0.70-1.30) mg/dL Est Cr Clr Drug Dosing 97.57 mL/min Estimated GFR (MDRD) > 60 BUN/Creatinine Ratio 28.4 (No establ ref range) Glucose 141 H (70-99) mg/dL POC Glucose 309 H 234 H (70-99) mg/dL Calcium 8.3 L (8.5-10.1) mg/dL Ferritin (26-388) mg/mL Total Bilirubin 0.6 (0.2-1.0) mg/dL Direct Bilirubin 0.2 (0.0-0.2) mg/dL AST 43 H (15-37) U/L ALT 46 (16-63) U/L Alkaline Phosphatase 75 (46-116) U/L Lactate Dehydrogenase 337 H (85-227) U/L C-Reactive Protein 13.4 H (0.0-0.9) mg/dL Total Protein 6.1 L (6.4-8.2) g/dL Albumin 2.5 L (3.4-5.0) g/dL Globulin 3.6 Albumin/Globulin Ratio 0.69 06/07/20 06/07/20 06/07/20 Range/Units 06:00 06:00 07:55 D-Dimer, Quantitative 1460 H (0-400) ng/mL Sodium (136-145) mmol/L Potassium (3.5-5.1) mmol/L Chloride (98-107) mmol/L Carbon Dioxide (21-32) mmol/L Anion Gap (7-13) mEq/L BUN (7-18) mg/dL Creatinine (0.70-1.30) mg/dL Est Cr Clr Drug Dosing mL/min Estimated GFR (MDRD) BUN/Creatinine Ratio (No establ ref range) Glucose (70-99) mg/dL POC Glucose 156 H (70-99) mg/dL Calcium (8.5-10.1) mg/dL Ferritin 1605 H (26-388) mg/mL Total Bilirubin (0.2-1.0) mg/dL Direct Bilirubin (0.0-0.2) mg/dL AST (15-37) U/L ALT (16-63) U/L Alkaline Phosphatase (46-116) U/L Lactate Dehydrogenase (85-227) U/L C-Reactive Protein (0.0-0.9) mg/dL Total Protein (6.4-8.2) g/dL Albumin (3.4-5.0) g/dL Globulin Albumin/Globulin Ratio Micah Results Last 24 Hours: Microbiology 06/05/20 15:42 Aerobic Blood Culture - Preliminary Blood - Venous - Iv Start NO GROWTH AFTER 1 DAY Anaerobic Blood Culture - Preliminary NO GROWTH AFTER 1 DAY Med Orders - Current: Current Medications Acetaminophen (Acetaminophen 325 Mg Tab) 650 mg PO Q4H PRN PRN Reason: Pain (Mild 1-3)/fever Albuterol (Albuterol 6.7 Gm Inhaler) 0 gm INH Q2H PRN PRN Reason: Shortness of Breath Last Admin: 06/07/20 06:10 Dose: 2 puff Documented by: Amlodipine Besylate (Amlodipine 5 Mg Tab) 5 mg PO DAILY [facility] Last Admin: 06/07/20 09:02 Dose: 5 mg Documented by: Ascorbic Acid (Ascorbic Acid 500 Mg Tab) 500 mg PO BID [facility] Aspirin (Aspirin 81 Mg Tab.Ec) 81 mg PO DAILY [facility] Last Admin: 06/07/20 09:01 Dose: 81 mg Documented by: Atorvastatin Calcium (Atorvastatin 20 Mg Tab) 20 mg PO BEDTIME [facility] Last Admin: 06/06/20 20:46 Dose: 20 mg Documented by: Benzocaine/Menthol (Benzocaine/Cetylpyridinium/Menthol Lozenge) 1 lozenge MUCMEM Q1H PRN PRN Reason: Cough Last Admin: 06/07/20 06:10 Dose: 1 lozenge Documented by: Dexamethasone (Dexamethasone 4 Mg/Ml Sdv) 6 mg IVPUSH DAILY [facility] Stop: 06/12/20 09:01 Last Admin: 06/07/20 09:03 Dose: 6 mg Documented by: Dextrose/Water (50% Dextrose In Water 50 Ml Syringe) 50 ml IV Q15M PRN PRN Reason: Hypoglycemia Dextrose/Water (50% Dextrose In Water 50 Ml Syringe) 50 ml IV Q15M PRN PRN Reason: Hypoglycemia Enoxaparin Sodium (Enoxaparin 80 Mg/0.8 Ml Syringe) 80 mg SUBCUT Q12HR [facility] Last Admin: 06/07/20 09:02 Dose: 80 mg Documented by: Glucagon (Glucagon,Human Recombinant 1 Mg Vial) 1 mg IM Q15M PRN PRN Reason: Hypoglycemia Glucagon (Glucagon,Human Recombinant 1 Mg Vial) 1 mg IM Q15M PRN PRN Reason: Hypoglycemia Remdesivir 100 mg/ Sodium (Chloride) 100 mls @ 100 mls/hr IV Q24H [facility] Stop: 06/09/20 18:59 Last Infusion: 06/06/20 19:23 Dose: Infused Documented by: Tocilizumab 640 mg/ Sodium (Chloride) 132 mls @ 132 mls/hr IV ONETIME ONE Stop: 06/07/20 12:35 Insulin Human Lispro (Insulin Lispro 100 Units/Ml 3 Ml Vial) 0 unit SUBCUT WITHMEALSANDBED [facility]; Protocol Lisinopril (Lisinopril 5 Mg Tab) 5 mg PO DAILY [facility] Last Admin: 06/07/20 09:01 Dose: 5 mg Documented by: Canagliflozin [ Invokana] 100 Mg TabletPt Own 100 mg PO DAILY [facility] Last Admin: 06/07/20 09:05 Dose: 100 mg Documented by: Ondansetron HCl (Ondansetron 4 Mg Tab.Dis) 4 mg PO Q6H PRN PRN Reason: nausea, able to take PO Sodium Chloride (Sodium Chloride 0.9% 10 Ml Syringe) 10 ml FLUSH ASDIRECTED PRN PRN Reason: Keep Vein Open Last Admin: 06/06/20 20:47 Dose: 10 ml Documented by: Discontinued Medications Albuterol (Albuterol 0.083% 2.5 Mg/3 Ml Neb Soln) 2.5 mg NEB Q2HR PRN PRN Reason: Dyspnea Enoxaparin Sodium (Enoxaparin 40 Mg/0.4 Ml Syringe) 40 mg SUBCUT DAILY [facility] Last Admin: 06/06/20 08:27 Dose: 40 mg Documented by: Enoxaparin Sodium (Enoxaparin 40 Mg/0.4 Ml Syringe) 40 mg SUBCUT ONETIME ONE Stop: 06/06/20 09:16 Last Admin: 06/06/20 10:17 Dose: 40 mg Documented by: Glyburide (Glyburide 5 Mg Tab) 10 mg PO BIDMEALS [facility] Last Admin: 06/07/20 09:00 Dose: 10 mg Documented by: Remdesivir 200 mg/ Sodium (Chloride) 250 mls @ 250 mls/hr IV ONETIME ONE Stop: 06/05/20 19:16 Last Infusion: 06/05/20 21:45 Dose: Infused Documented by: Insulin Human Lispro (Insulin Lispro 100 Units/Ml 3 Ml Vial) 5 unit SUBCUT ONETIME ONE Stop: 06/06/20 17:23 Last Admin: 06/06/20 18:10 Dose: 5 units Documented by: Iopamidol (Iopamidol 755 Mg/Ml 100 Ml Bottle) 100 ml IVPUSH ONETIME ONE Stop: 06/05/20 16:59 Last Admin: 06/05/20 17:25 Dose: 66 ml Documented by: Ketorolac Tromethamine (Ketorolac 30 Mg/Ml Sdv) 30 mg IVPUSH Q6H PRN PRN Reason: Pain (moderate 4-6) Metformin HCl (Metformin 500 Mg Tab) 1,000 mg PO BIDMEALS [facility] Last Admin: 06/07/20 09:01 Dose: Not Given Documented by: Ondansetron HCl (Ondansetron 4 Mg Tab.Dis) 4 mg PO Q8H PRN PRN Reason: Nausea - Exam General: Alert, Oriented HEENT: Pupils Equal Neck: Supple Lungs: Rhonchi. No: Rales, Wheezing Cardiovascular: Regular Rate, Regular Rhythm GI/Abdominal Exam: Normal Bowel Sounds Extremities: Normal Inspection Skin: Warm Neurological: No New Focal Deficit Psy/Mental Status: Alert, Normal Affect - Patient Data Lab Results Last 24 hrs: Laboratory Results - last 24 hr 06/06/20 06/06/20 06/07/20 Range/Units 16:53 22:31 06:00 D-Dimer, Quantitative (0-400) ng/mL Sodium 137 (136-145) mmol/L Potassium 4.1 (3.5-5.1) mmol/L Chloride 98 (98-107) mmol/L Carbon Dioxide 25 (21-32) mmol/L Anion Gap 18.1 H (7-13) mEq/L BUN 21 H (7-18) mg/dL Creatinine 0.74 (0.70-1.30) mg/dL Est Cr Clr Drug Dosing 97.57 mL/min Estimated GFR (MDRD) > 60 BUN/Creatinine Ratio 28.4 (No establ ref range) Glucose 141 H (70-99) mg/dL POC Glucose 309 H 234 H (70-99) mg/dL Calcium 8.3 L (8.5-10.1) mg/dL Ferritin (26-388) mg/mL Total Bilirubin 0.6 (0.2-1.0) mg/dL Direct Bilirubin 0.2 (0.0-0.2) mg/dL AST 43 H (15-37) U/L ALT 46 (16-63) U/L Alkaline Phosphatase 75 (46-116) U/L Lactate Dehydrogenase 337 H (85-227) U/L C-Reactive Protein 13.4 H (0.0-0.9) mg/dL Total Protein 6.1 L (6.4-8.2) g/dL Albumin 2.5 L (3.4-5.0) g/dL Globulin 3.6 Albumin/Globulin Ratio 0.69 06/07/20 06/07/20 06/07/20 Range/Units 06:00 06:00 07:55 D-Dimer, Quantitative 1460 H (0-400) ng/mL Sodium (136-145) mmol/L Potassium (3.5-5.1) mmol/L Chloride (98-107) mmol/L Carbon Dioxide (21-32) mmol/L Anion Gap (7-13) mEq/L BUN (7-18) mg/dL Creatinine (0.70-1.30) mg/dL Est Cr Clr Drug Dosing mL/min Estimated GFR (MDRD) BUN/Creatinine Ratio (No establ ref range) Glucose (70-99) mg/dL POC Glucose 156 H (70-99) mg/dL Calcium (8.5-10.1) mg/dL Ferritin 1605 H (26-388) mg/mL Total Bilirubin (0.2-1.0) mg/dL Direct Bilirubin (0.0-0.2) mg/dL AST (15-37) U/L ALT (16-63) U/L Alkaline Phosphatase (46-116) U/L Lactate Dehydrogenase (85-227) U/L C-Reactive Protein (0.0-0.9) mg/dL Total Protein (6.4-8.2) g/dL Albumin (3.4-5.0) g/dL Globulin Albumin/Globulin Ratio Result Diagrams: 06/05/20 15:42 06/07/20 06:00 Micah Results Last 24 hrs: Microbiology 06/05/20 15:42 Aerobic Blood Culture - Preliminary Blood - Venous - Iv Start NO GROWTH AFTER 1 DAY Anaerobic Blood Culture - Preliminary NO GROWTH AFTER 1 DAY Sepsis Event Note - Evaluation Sepsis Screening Result: No Definite Risk Current Stage of Sepsis: Ruled Out Reason for Ruling Out Sepsis: Originally admitted for novel coronavirus 19 infection. Possible Source of Sepsis: Other (Coronavirus 19.) - Focused Exam Vital Signs: Vital Signs Temp Pulse Resp BP BP Pulse Ox 06/07/20 11:26 67 29 H 129/57 L 94 L 06/07/20 09:02 123/67 06/07/20 09:01 123/67 06/07/20 07:58 97.6 F 56 L 30 H 123/67 95 06/07/20 03:05 97.6 F 48 L 24 H 120/58 L 96 - Problem List Review Problem List Initiated/Reviewed/Updated: Yes - My Orders Last 24 Hours: My Active Orders 06/07/20 11:36 Ascorbic Acid [Vitamin C] 500 mg PO BID Tocilizumab [Actemra] 631.4 mg Sodium Chloride 0.9% [Normal Saline] 100 ml IV ONETIME 06/07/20 11:38 Verify Patient Consent Obtain [RC] ASDIRECTED FRESH FROZEN PLASMA [BBK] Stat Transfuse Fresh Frozen Plasma [COMM] Stat 06/07/20 11:41 Dextrose 50% in Water 50 ml IV Q15M PRN Glucagon,Human Recombinant [GlucaGen] 1 mg IM Q15M PRN 06/07/20 12:00 Insulin Lispro [HumaLOG] See Protocol SUBCUT WITHMEALSANDBED - Plan Plan:: Assessment: 1. Severe COVID-19 pneumonia 2. Essential hypertension 3. Type 2 diabetes mellitus, currently on 3 oral agents 4. Hyperlipidemia Plan: 1. Continue remdesivir and dexamethasone IV 2. Continue to attempt to titrate high flow nasal cannula when possible 3. Continue cardiopulmonary toileting, including prone positioning and incentive spirometry 4. We will recheck inflammatory markers in the a.m. 1. Sepsis. (Nonsevere, nonshock). Secondary to acute coronavirus 19 infection. Currently euvolemic. Sepsis physiology resolved at this time. 2. Acute hypoxic respiratory failure in the setting of acute novel coronavirus 19 infection/pneumonitis. Continues on remdesivir protocol. Remains on dexamethasone, will continue full course. Initiate convalescent plasma and Tocilizumab infusion. Orders have been placed today. Transfusion consent has been requested from the patient and he has given us consent both verbally and is currently in the process of signing require documents. Patient remains on weight-based Lovenox due to significant pro inflammatory ted er elevation. Initiate high-dose vitamin C as well as zinc oral supplementation. Remains on high flow oxygen at 30 L/min and 50% FiO2. Continue ICU level of care monitoring. Wean FiO2 and flow rate as tolerated. Discussed with the patient the importance of self proning. He states that he will try. 3. Type 2 diabetes mellitus. Hold oral hypoglycemics while in the hospital. Initiate hospital hyperglycemia protocol. 4. Hypertension. Continue home medications at regular dose. 5. Hyperlipidemia. Continue daily statin therapy. CODE STATUS: Full code. DVT prophylaxis with Lovenox.
[2020-06-07] MEDS: Ascorbic Acid 500 MG Tab PO SCH ×2 (12:48→21:20)
[2020-06-07] MEDS: Insulin Lispro 100 Units/ML 3 ML Vial SUBCUT SCH ×3 (12:49→21:13)
[2020-06-07] MEDS: REMDESIVIR 100 MG in Sodium Chloride 0.9% 100 ML IV SCH (17:34)
[2020-06-07] MEDS: atorvaSTATin 20 MG Tab PO SCH (21:20)
[2020-06-07] MEDS: Sodium Chloride 0.9% 10 ML Syringe FLUSH PRN (21:28)
[2020-06-08 07:08] LABS: ANION GAP 17.7 mEq/L (7-13); CHLORIDE,CL 102 mmol/L (98-107); SODIUM,NA 138 mmol/L (136-145)
[2020-06-08] MEDS: Insulin Lispro 100 Units/ML 3 ML Vial SUBCUT SCH ×4 (08:27→21:48)
[2020-06-08] MEDS: Lisinopril 5 MG Tab PO SCH (08:28)
[2020-06-08] MEDS: amLODIPine 5 MG Tab PO SCH (08:28)
[2020-06-08] MEDS: Aspirin 81 MG Tab.EC PO SCH (08:28)
[2020-06-08] MEDS: Ascorbic Acid 500 MG Tab PO SCH ×2 (08:28→21:51)
[2020-06-08] MEDS: CANAGLIFLOZIN 100 MG PO SCH (08:33)
--- NOTE | 2020-06-08 08:42 | PCM.PN ---
- General Info Date of Service: 06/08/20 Admission Dx/Problem (Free Text): Sepsis. COVID-19 pneumonitis/pneumonia. Acute hypoxic respiratory failure. Subjective Update: Patient seen and examined at bedside. No significant overnight events. No new nursing concerns. Oxygen saturation remained steady in the low 90s on 30 L/min and 50% FiO2. Patient states that he feels better after proning. Prone for at least 1/2-hour during yesterday shift and overnight. Continues to cough with minimal white sputum production. Denies fever, chest pain, chest pressure, pleurisy. Awaiting convalescent plasma and Tocilizumab delivery for infusion. - Review of Systems General: Reports: No Symptoms HEENT: Reports: Sinus Congestion Pulmonary: Reports: Shortness of Breath, Cough, Sputum. Denies: Pleuritic Chest Pain, Hemoptysis Cardiovascular: Reports: No Symptoms Gastrointestinal: Reports: No Symptoms Musculoskeletal: Reports: No Symptoms - Patient Data Vitals - Most Recent: Last Vital Signs Temp 98 F 06/08/20 03:21 Pulse 50 L 06/08/20 03:21 Resp 24 H 06/08/20 03:21 BP 121/65 06/08/20 08:28 Pulse Ox 98 06/08/20 03:21 Weight - Most Recent: 174 lb I&O - Last 24 Hours: Intake & Output 06/07/20 06/08/20 06/08/20 22:59 06:59 14:59 Intake Total 700 750 Output Total 800 1000 Balance -100 -250 Lab Results Last 24 Hours: Laboratory Results - last 24 hr 06/07/20 06/07/20 06/07/20 Range/Units 06:00 11:37 17:10 WBC (5.0-10.0) 10^3/uL RBC (4.6-6.2) 10^6/uL Hgb (14.0-18.0) g/dL Hct (40.0-54.0) % MCV (80-100) fL MCH (27.0-34.0) pg MCHC (33.0-35.0) g/dL Plt Count (150-450) 10^3/uL Neut % (Auto) (42.2-75.2) % Lymph % (Auto) (20.5-50.1) % Arroyo % (Auto) (2-8) % Eos % (Auto) (1.0-3.0) % Baso % (Auto) (0.0-1.0) % Add Manual Diff Sodium (136-145) mmol/L Potassium (3.5-5.1) mmol/L Chloride (98-107) mmol/L Carbon Dioxide (21-32) mmol/L Anion Gap (7-13) mEq/L BUN (7-18) mg/dL Creatinine (0.70-1.30) mg/dL Est Cr Clr Drug Dosing mL/min Estimated GFR (MDRD) BUN/Creatinine Ratio (No establ ref range) Glucose (70-99) mg/dL POC Glucose 203 H 174 H (70-99) mg/dL Calcium (8.5-10.1) mg/dL Total Bilirubin (0.2-1.0) mg/dL Direct Bilirubin (0.0-0.2) mg/dL AST (15-37) U/L ALT (16-63) U/L Alkaline Phosphatase (46-116) U/L Total Protein (6.4-8.2) g/dL Albumin (3.4-5.0) g/dL Globulin Albumin/Globulin Ratio Blood Type A POSITIVE 06/07/20 06/08/20 06/08/20 Range/Units 21:08 06:15 06:15 WBC 12.3 H (5.0-10.0) 10^3/uL RBC 4.50 L (4.6-6.2) 10^6/uL Hgb 13.6 L D (14.0-18.0) g/dL Hct 40.7 (40.0-54.0) % MCV 90.4 (80-100) fL MCH 30.2 (27.0-34.0) pg MCHC 33.4 (33.0-35.0) g/dL Plt Count 526 H D (150-450) 10^3/uL Neut % (Auto) 87.9 H (42.2-75.2) % Lymph % (Auto) 6.8 L (20.5-50.1) % Arroyo % (Auto) 5.1 (2-8) % Eos % (Auto) 0.0 L (1.0-3.0) % Baso % (Auto) 0.2 (0.0-1.0) % Add Manual Diff Yes Sodium 138 (136-145) mmol/L Potassium 4.7 (3.5-5.1) mmol/L Chloride 102 (98-107) mmol/L Carbon Dioxide 23 (21-32) mmol/L Anion Gap 17.7 H (7-13) mEq/L BUN 23 H (7-18) mg/dL Creatinine 0.77 (0.70-1.30) mg/dL Est Cr Clr Drug Dosing 93.77 mL/min Estimated GFR (MDRD) > 60 BUN/Creatinine Ratio 29.9 (No establ ref range) Glucose 180 H (70-99) mg/dL POC Glucose 247 H (70-99) mg/dL Calcium 8.2 L (8.5-10.1) mg/dL Total Bilirubin 0.5 (0.2-1.0) mg/dL Direct Bilirubin 0.2 (0.0-0.2) mg/dL AST 42 H (15-37) U/L ALT 59 (16-63) U/L Alkaline Phosphatase 73 (46-116) U/L Total Protein 5.9 L (6.4-8.2) g/dL Albumin 2.5 L (3.4-5.0) g/dL Globulin 3.4 Albumin/Globulin Ratio 0.74 Blood Type 06/08/20 Range/Units 08:13 WBC (5.0-10.0) 10^3/uL RBC (4.6-6.2) 10^6/uL Hgb (14.0-18.0) g/dL Hct (40.0-54.0) % MCV (80-100) fL MCH (27.0-34.0) pg MCHC (33.0-35.0) g/dL Plt Count (150-450) 10^3/uL Neut % (Auto) (42.2-75.2) % Lymph % (Auto) (20.5-50.1) % Arroyo % (Auto) (2-8) % Eos % (Auto) (1.0-3.0) % Baso % (Auto) (0.0-1.0) % Add Manual Diff Sodium (136-145) mmol/L Potassium (3.5-5.1) mmol/L Chloride (98-107) mmol/L Carbon Dioxide (21-32) mmol/L Anion Gap (7-13) mEq/L BUN (7-18) mg/dL Creatinine (0.70-1.30) mg/dL Est Cr Clr Drug Dosing mL/min Estimated GFR (MDRD) BUN/Creatinine Ratio (No establ ref range) Glucose (70-99) mg/dL POC Glucose 154 H (70-99) mg/dL Calcium (8.5-10.1) mg/dL Total Bilirubin (0.2-1.0) mg/dL Direct Bilirubin (0.0-0.2) mg/dL AST (15-37) U/L ALT (16-63) U/L Alkaline Phosphatase (46-116) U/L Total Protein (6.4-8.2) g/dL Albumin (3.4-5.0) g/dL Globulin Albumin/Globulin Ratio Blood Type Micah Results Last 24 Hours: Microbiology 06/05/20 15:42 Aerobic Blood Culture - Preliminary Blood - Venous - Iv Start NO GROWTH AFTER 2 DAYS Anaerobic Blood Culture - Preliminary NO GROWTH AFTER 2 DAYS Med Orders - Current: Current Medications Acetaminophen (Acetaminophen 325 Mg Tab) 650 mg PO Q4H PRN PRN Reason: Pain (Mild 1-3)/fever Albuterol (Albuterol 6.7 Gm Inhaler) 0 gm INH Q2H PRN PRN Reason: Shortness of Breath Last Admin: 06/07/20 06:10 Dose: 2 puff Documented by: Amlodipine Besylate (Amlodipine 5 Mg Tab) 5 mg PO DAILY [facility] Last Admin: 06/08/20 08:28 Dose: 5 mg Documented by: Ascorbic Acid (Ascorbic Acid 500 Mg Tab) 500 mg PO BID [facility] Last Admin: 06/08/20 08:28 Dose: 500 mg Documented by: Aspirin (Aspirin 81 Mg Tab.Ec) 81 mg PO DAILY [facility] Last Admin: 06/08/20 08:28 Dose: 81 mg Documented by: Atorvastatin Calcium (Atorvastatin 20 Mg Tab) 20 mg PO BEDTIME [facility] Last Admin: 06/07/20 21:20 Dose: 20 mg Documented by: Benzocaine/Menthol (Benzocaine/Cetylpyridinium/Menthol Lozenge) 1 lozenge MUCMEM Q1H PRN PRN Reason: Cough Last Admin: 06/07/20 23:18 Dose: 1 lozenge Documented by: Dexamethasone (Dexamethasone 4 Mg/Ml Sdv) 6 mg IVPUSH DAILY [facility] Stop: 06/12/20 09:01 Last Admin: 06/07/20 09:03 Dose: 6 mg Documented by: Dextrose/Water (50% Dextrose In Water 50 Ml Syringe) 50 ml IV Q15M PRN PRN Reason: Hypoglycemia Enoxaparin Sodium (Enoxaparin 80 Mg/0.8 Ml Syringe) 80 mg SUBCUT Q12HR [facility] Last Admin: 06/07/20 21:20 Dose: 80 mg Documented by: Glucagon (Glucagon,Human Recombinant 1 Mg Vial) 1 mg IM Q15M PRN PRN Reason: Hypoglycemia Remdesivir 100 mg/ Sodium (Chloride) 100 mls @ 100 mls/hr IV Q24H [facility] Stop: 06/09/20 18:59 Last Admin: 06/07/20 17:34 Dose: 100 mls/hr Documented by: Insulin Human Lispro (Insulin Lispro 100 Units/Ml 3 Ml Vial) 0 unit SUBCUT WITHMEALSANDBED [facility]; Protocol Last Admin: 06/08/20 08:27 Dose: 2 units Documented by: Lisinopril (Lisinopril 5 Mg Tab) 5 mg PO DAILY [facility] Last Admin: 06/08/20 08:28 Dose: 5 mg Documented by: Canagliflozin [ Invokana] 100 Mg TabletPt Own 100 mg PO DAILY [facility] Last Admin: 06/08/20 08:33 Dose: 100 mg Documented by: Ondansetron HCl (Ondansetron 4 Mg Tab.Dis) 4 mg PO Q6H PRN PRN Reason: nausea, able to take PO Sodium Chloride (Sodium Chloride 0.9% 10 Ml Syringe) 10 ml FLUSH ASDIRECTED PRN PRN Reason: Keep Vein Open Last Admin: 06/07/20 21:28 Dose: 10 ml Documented by: Discontinued Medications Albuterol (Albuterol 0.083% 2.5 Mg/3 Ml Neb Soln) 2.5 mg NEB Q2HR PRN PRN Reason: Dyspnea Enoxaparin Sodium (Enoxaparin 40 Mg/0.4 Ml Syringe) 40 mg SUBCUT DAILY [facility] Last Admin: 06/06/20 08:27 Dose: 40 mg Documented by: Enoxaparin Sodium (Enoxaparin 40 Mg/0.4 Ml Syringe) 40 mg SUBCUT ONETIME ONE Stop: 06/06/20 09:16 Last Admin: 06/06/20 10:17 Dose: 40 mg Documented by: Glyburide (Glyburide 5 Mg Tab) 10 mg PO BIDMEALS [facility] Last Admin: 06/07/20 09:00 Dose: 10 mg Documented by: Remdesivir 200 mg/ Sodium (Chloride) 250 mls @ 250 mls/hr IV ONETIME ONE Stop: 06/05/20 19:16 Last Infusion: 06/05/20 21:45 Dose: Infused Documented by: Tocilizumab 640 mg/ Sodium (Chloride) 132 mls @ 132 mls/hr IV ONETIME ONE Stop: 06/07/20 12:35 Insulin Human Lispro (Insulin Lispro 100 Units/Ml 3 Ml Vial) 5 unit SUBCUT ONETIME ONE Stop: 06/06/20 17:23 Last Admin: 06/06/20 18:10 Dose: 5 units Documented by: Iopamidol (Iopamidol 755 Mg/Ml 100 Ml Bottle) 100 ml IVPUSH ONETIME ONE Stop: 06/05/20 16:59 Last Admin: 06/05/20 17:25 Dose: 66 ml Documented by: Ketorolac Tromethamine (Ketorolac 30 Mg/Ml Sdv) 30 mg IVPUSH Q6H PRN PRN Reason: Pain (moderate 4-6) Metformin HCl (Metformin 500 Mg Tab) 1,000 mg PO BIDMEALS [facility] Last Admin: 06/07/20 09:01 Dose: Not Given Documented by: Ondansetron HCl (Ondansetron 4 Mg Tab.Dis) 4 mg PO Q8H PRN PRN Reason: Nausea - Exam Quality Assessment: Supplemental Oxygen (Via high flow as noted above.) General: Alert Lungs: Decreased Breath Sounds, Crackles (Rales lower lobes bilaterally with overall decreased breath sounds.). No: Wheezing Cardiovascular: Regular Rate GI/Abdominal Exam: Normal Bowel Sounds, Soft, Non-Tender Extremities: Normal Inspection, No Pedal Edema Skin: Warm - Patient Data Lab Results Last 24 hrs: Laboratory Results - last 24 hr 06/07/20 06/07/20 06/07/20 Range/Units 06:00 11:37 17:10 WBC (5.0-10.0) 10^3/uL RBC (4.6-6.2) 10^6/uL Hgb (14.0-18.0) g/dL Hct (40.0-54.0) % MCV (80-100) fL MCH (27.0-34.0) pg MCHC (33.0-35.0) g/dL Plt Count (150-450) 10^3/uL Neut % (Auto) (42.2-75.2) % Lymph % (Auto) (20.5-50.1) % Arroyo % (Auto) (2-8) % Eos % (Auto) (1.0-3.0) % Baso % (Auto) (0.0-1.0) % Add Manual Diff Sodium (136-145) mmol/L Potassium (3.5-5.1) mmol/L Chloride (98-107) mmol/L Carbon Dioxide (21-32) mmol/L Anion Gap (7-13) mEq/L BUN (7-18) mg/dL Creatinine (0.70-1.30) mg/dL Est Cr Clr Drug Dosing mL/min Estimated GFR (MDRD) BUN/Creatinine Ratio (No establ ref range) Glucose (70-99) mg/dL POC Glucose 203 H 174 H (70-99) mg/dL Calcium (8.5-10.1) mg/dL Total Bilirubin (0.2-1.0) mg/dL Direct Bilirubin (0.0-0.2) mg/dL AST (15-37) U/L ALT (16-63) U/L Alkaline Phosphatase (46-116) U/L Total Protein (6.4-8.2) g/dL Albumin (3.4-5.0) g/dL Globulin Albumin/Globulin Ratio Blood Type A POSITIVE 06/07/20 06/08/20 06/08/20 Range/Units 21:08 06:15 06:15 WBC 12.3 H (5.0-10.0) 10^3/uL RBC 4.50 L (4.6-6.2) 10^6/uL Hgb 13.6 L D (14.0-18.0) g/dL Hct 40.7 (40.0-54.0) % MCV 90.4 (80-100) fL MCH 30.2 (27.0-34.0) pg MCHC 33.4 (33.0-35.0) g/dL Plt Count 526 H D (150-450) 10^3/uL Neut % (Auto) 87.9 H (42.2-75.2) % Lymph % (Auto) 6.8 L (20.5-50.1) % Arroyo % (Auto) 5.1 (2-8) % Eos % (Auto) 0.0 L (1.0-3.0) % Baso % (Auto) 0.2 (0.0-1.0) % Add Manual Diff Yes Sodium 138 (136-145) mmol/L Potassium 4.7 (3.5-5.1) mmol/L Chloride 102 (98-107) mmol/L Carbon Dioxide 23 (21-32) mmol/L Anion Gap 17.7 H (7-13) mEq/L BUN 23 H (7-18) mg/dL Creatinine 0.77 (0.70-1.30) mg/dL Est Cr Clr Drug Dosing 93.77 mL/min Estimated GFR (MDRD) > 60 BUN/Creatinine Ratio 29.9 (No establ ref range) Glucose 180 H (70-99) mg/dL POC Glucose 247 H (70-99) mg/dL Calcium 8.2 L (8.5-10.1) mg/dL Total Bilirubin 0.5 (0.2-1.0) mg/dL Direct Bilirubin 0.2 (0.0-0.2) mg/dL AST 42 H (15-37) U/L ALT 59 (16-63) U/L Alkaline Phosphatase 73 (46-116) U/L Total Protein 5.9 L (6.4-8.2) g/dL Albumin 2.5 L (3.4-5.0) g/dL Globulin 3.4 Albumin/Globulin Ratio 0.74 Blood Type 06/08/20 Range/Units 08:13 WBC (5.0-10.0) 10^3/uL RBC (4.6-6.2) 10^6/uL Hgb (14.0-18.0) g/dL Hct (40.0-54.0) % MCV (80-100) fL MCH (27.0-34.0) pg MCHC (33.0-35.0) g/dL Plt Count (150-450) 10^3/uL Neut % (Auto) (42.2-75.2) % Lymph % (Auto) (20.5-50.1) % Arroyo % (Auto) (2-8) % Eos % (Auto) (1.0-3.0) % Baso % (Auto) (0.0-1.0) % Add Manual Diff Sodium (136-145) mmol/L Potassium (3.5-5.1) mmol/L Chloride (98-107) mmol/L Carbon Dioxide (21-32) mmol/L Anion Gap (7-13) mEq/L BUN (7-18) mg/dL Creatinine (0.70-1.30) mg/dL Est Cr Clr Drug Dosing mL/min Estimated GFR (MDRD) BUN/Creatinine Ratio (No establ ref range) Glucose (70-99) mg/dL POC Glucose 154 H (70-99) mg/dL Calcium (8.5-10.1) mg/dL Total Bilirubin (0.2-1.0) mg/dL Direct Bilirubin (0.0-0.2) mg/dL AST (15-37) U/L ALT (16-63) U/L Alkaline Phosphatase (46-116) U/L Total Protein (6.4-8.2) g/dL Albumin (3.4-5.0) g/dL Globulin Albumin/Globulin Ratio Blood Type Result Diagrams: 06/08/20 06:15 06/08/20 06:15 Micah Results Last 24 hrs: Microbiology 06/05/20 15:42 Aerobic Blood Culture - Preliminary Blood - Venous - Iv Start NO GROWTH AFTER 2 DAYS Anaerobic Blood Culture - Preliminary NO GROWTH AFTER 2 DAYS Sepsis Event Note - Evaluation Sepsis Screening Result: No Definite Risk - Focused Exam Vital Signs: Vital Signs Temp Pulse Resp BP BP Pulse Ox 06/08/20 08:28 121/65 06/08/20 03:21 98 F 50 L 24 H 134/67 98 06/08/20 02:00 88 L 06/07/20 23:16 97.5 F 67 28 H 132/61 96 - Problem List Review Problem List Initiated/Reviewed/Updated: Yes - My Orders Last 24 Hours: My Active Orders 06/07/20 11:36 Ascorbic Acid [Vitamin C] 500 mg PO BID 06/07/20 11:38 Verify Patient Consent Obtain [RC] ASDIRECTED Transfuse Fresh Frozen Plasma [COMM] Stat 06/07/20 12:00 Insulin Lispro [HumaLOG] See Protocol SUBCUT WITHMEALSANDBED 06/08/20 06:15 CBC WITH AUTO DIFF [HEME] Routine MANUAL DIFFERENTIAL QA/NC [HEME] Routine - Plan Plan:: 1. Sepsis. (Nonsevere, nonshock). Secondary to acute coronavirus 19 infection. Currently euvolemic. Sepsis physiology resolved at this time. 2. Acute hypoxic respiratory failure in the setting of acute novel coronavirus 19 infection/pneumonitis. Continues on remdesivir protocol. Remains on dexamethasone, continue full course. Initiate convalescent plasma and Tocilizumab infusion when available. Transfusion consent has been requested from the patient and he has given us consent both verbally and has signed appropriate documents. Patient remains on weight-based Lovenox due to significant pro inflammatory marker elevation. Continue vitamin C as well as zinc oral supplementation. Remains on high flow oxygen at 30 L/min and 50% FiO2. Continue ICU level of care monitoring. Wean FiO2 and flow rate as tolerated. Discussed with the patient the importance of self proning. He has been doing it for half hour at a time. 3. Type 2 diabetes mellitus. Hold oral hypoglycemics while in the hospital. Initiate hospital hyperglycemia protocol. 4. Hypertension. Continue home medications at regular dose. 5. Hyperlipidemia. Continue daily statin therapy. CODE STATUS: Full code. DVT prophylaxis with Lovenox. Total amount of critical care time 30 minutes.
[2020-06-08] MEDS: Dexamethasone 4 MG/ML SDV IVPUSH SCH (09:46)
[2020-06-08] MEDS: Enoxaparin 80 MG/0.8 ML Syringe SUBCUT SCH ×2 (09:47→21:56)
[2020-06-08] MEDS: REMDESIVIR 100 MG in Sodium Chloride 0.9% 100 ML IV SCH (18:20)
[2020-06-08] MEDS: atorvaSTATin 20 MG Tab PO SCH (21:51)
[2020-06-08] MEDS: Benzocaine/Cetylpyridinium/Menthol Lozenge MUCMEM PRN (21:58)
[2020-06-09] MEDS: Benzocaine/Cetylpyridinium/Menthol Lozenge MUCMEM PRN ×2 (00:23→20:50)
[2020-06-09 06:22] LABS: ANION GAP 15.1 mEq/L (7-13); CHLORIDE,CL 101 mmol/L (98-107); SODIUM,NA 136 mmol/L (136-145)
--- NOTE | 2020-06-09 08:30 | PCM.PN ---
- General Info Date of Service: 06/09/20 Admission Dx/Problem (Free Text): Sepsis. COVID-19 pneumonitis/pneumonia. Acute hypoxic respiratory failure. Subjective Update: No acute events overnight. No new specific nursing concerns. Patient continues to prone multiple times a day for at least 30 to 45 minutes at a time. Oxygenation greatly improves at that time and respiratory rate is less labored and overall lower. Doing well at 25 L and 45% FiO2. Denies any fever. Continues to have cough but without sputum. Sleeping well. P.o. intake is good. Supposedly convalescent plasma and Tocilizumab will be available today for infusion. - Review of Systems General: Denies: Fever Pulmonary: Reports: Cough. Denies: Shortness of Breath, Pleuritic Chest Pain, Sputum, Hemoptysis, Wheezing - Patient Data Vitals - Most Recent: Last Vital Signs Temp 97.4 F 06/08/20 23:12 Pulse 40 L 06/09/20 03:19 Resp 20 06/09/20 03:19 BP 124/59 L 06/08/20 23:12 Pulse Ox 99 06/09/20 03:19 Weight - Most Recent: 174 lb I&O - Last 24 Hours: Intake & Output 06/08/20 06/09/20 06/09/20 22:59 06:59 14:59 Intake Total 755 550 Output Total 950 1450 Balance -195 -900 Lab Results Last 24 Hours: Laboratory Results - last 24 hr 06/08/20 06/08/20 06/08/20 Range/Units 06:15 08:13 11:23 WBC (5.0-10.0) 10^3/uL RBC (4.6-6.2) 10^6/uL Hgb (14.0-18.0) g/dL Hct (40.0-54.0) % MCV (80-100) fL MCH (27.0-34.0) pg MCHC (33.0-35.0) g/dL Plt Count (150-450) 10^3/uL Neut % (Auto) (42.2-75.2) % Lymph % (Auto) (20.5-50.1) % Dane % (Auto) (2-8) % Eos % (Auto) (1.0-3.0) % Baso % (Auto) (0.0-1.0) % Add Manual Diff Neutrophils % (Manual) 83 H (42-75) % Lymphocytes % (Manual) 10 L (20-50) % Monocytes % (Manual) 7 (2-8) % Sodium (136-145) mmol/L Potassium (3.5-5.1) mmol/L Chloride (98-107) mmol/L Carbon Dioxide (21-32) mmol/L Anion Gap (7-13) mEq/L BUN (7-18) mg/dL Creatinine (0.70-1.30) mg/dL Est Cr Clr Drug Dosing mL/min Estimated GFR (MDRD) BUN/Creatinine Ratio (No establ ref range) Glucose (70-99) mg/dL POC Glucose 154 H 226 H (70-99) mg/dL Calcium (8.5-10.1) mg/dL Total Bilirubin (0.2-1.0) mg/dL Direct Bilirubin (0.0-0.2) mg/dL AST (15-37) U/L ALT (16-63) U/L Alkaline Phosphatase (46-116) U/L Total Protein (6.4-8.2) g/dL Albumin (3.4-5.0) g/dL Globulin Albumin/Globulin Ratio 06/08/20 06/08/20 06/09/20 Range/Units 17:08 21:41 05:40 WBC (5.0-10.0) 10^3/uL RBC (4.6-6.2) 10^6/uL Hgb (14.0-18.0) g/dL Hct (40.0-54.0) % MCV (80-100) fL MCH (27.0-34.0) pg MCHC (33.0-35.0) g/dL Plt Count (150-450) 10^3/uL Neut % (Auto) (42.2-75.2) % Lymph % (Auto) (20.5-50.1) % Dane % (Auto) (2-8) % Eos % (Auto) (1.0-3.0) % Baso % (Auto) (0.0-1.0) % Add Manual Diff Neutrophils % (Manual) (42-75) % Lymphocytes % (Manual) (20-50) % Monocytes % (Manual) (2-8) % Sodium 136 (136-145) mmol/L Potassium 5.1 (3.5-5.1) mmol/L Chloride 101 (98-107) mmol/L Carbon Dioxide 25 (21-32) mmol/L Anion Gap 15.1 H (7-13) mEq/L BUN 23 H (7-18) mg/dL Creatinine 0.83 (0.70-1.30) mg/dL Est Cr Clr Drug Dosing 86.99 mL/min Estimated GFR (MDRD) > 60 BUN/Creatinine Ratio 27.7 (No establ ref range) Glucose 200 H (70-99) mg/dL POC Glucose 211 H 235 H (70-99) mg/dL Calcium 8.2 L (8.5-10.1) mg/dL Total Bilirubin 0.5 (0.2-1.0) mg/dL Direct Bilirubin 0.2 (0.0-0.2) mg/dL AST 38 H (15-37) U/L ALT 63 (16-63) U/L Alkaline Phosphatase 66 (46-116) U/L Total Protein 5.8 L (6.4-8.2) g/dL Albumin 2.6 L (3.4-5.0) g/dL Globulin 3.2 Albumin/Globulin Ratio 0.81 05/03/ Range/Units 05:40 WBC 11.1 H (5.0-10.0) 10^3/uL RBC 4.57 L (4.6-6.2) 10^6/uL Hgb 13.9 L (14.0-18.0) g/dL Hct 41.6 (40.0-54.0) % MCV 91.0 (80-100) fL MCH 30.4 (27.0-34.0) pg MCHC 33.4 (33.0-35.0) g/dL Plt Count 540 H (150-450) 10^3/uL Neut % (Auto) 83.5 H (42.2-75.2) % Lymph % (Auto) 9.4 L (20.5-50.1) % Dane % (Auto) 6.8 (2-8) % Eos % (Auto) 0.0 L (1.0-3.0) % Baso % (Auto) 0.3 (0.0-1.0) % Add Manual Diff Neutrophils % (Manual) (42-75) % Lymphocytes % (Manual) (20-50) % Monocytes % (Manual) (2-8) % Sodium (136-145) mmol/L Potassium (3.5-5.1) mmol/L Chloride (98-107) mmol/L Carbon Dioxide (21-32) mmol/L Anion Gap (7-13) mEq/L BUN (7-18) mg/dL Creatinine (0.70-1.30) mg/dL Est Cr Clr Drug Dosing mL/min Estimated GFR (MDRD) BUN/Creatinine Ratio (No establ ref range) Glucose (70-99) mg/dL POC Glucose (70-99) mg/dL Calcium (8.5-10.1) mg/dL Total Bilirubin (0.2-1.0) mg/dL Direct Bilirubin (0.0-0.2) mg/dL AST (15-37) U/L ALT (16-63) U/L Alkaline Phosphatase (46-116) U/L Total Protein (6.4-8.2) g/dL Albumin (3.4-5.0) g/dL Globulin Albumin/Globulin Ratio Micah Results Last 24 Hours: Microbiology 06/05/20 15:42 Aerobic Blood Culture - Preliminary Blood - Venous - Iv Start NO GROWTH AFTER 3 DAYS Anaerobic Blood Culture - Preliminary NO GROWTH AFTER 3 DAYS Med Orders - Current: Current Medications Acetaminophen (Acetaminophen 325 Mg Tab) 650 mg PO Q4H PRN PRN Reason: Pain (Mild 1-3)/fever Albuterol (Albuterol 6.7 Gm Inhaler) 0 gm INH Q2H PRN PRN Reason: Shortness of Breath Last Admin: 06/07/20 06:10 Dose: 2 puff Documented by: Amlodipine Besylate (Amlodipine 5 Mg Tab) 5 mg PO DAILY [facility] Last Admin: 06/08/20 08:28 Dose: 5 mg Documented by: Ascorbic Acid (Ascorbic Acid 500 Mg Tab) 500 mg PO BID [facility] Last Admin: 06/08/20 21:51 Dose: 500 mg Documented by: Aspirin (Aspirin 81 Mg Tab.Ec) 81 mg PO DAILY [facility] Last Admin: 06/08/20 08:28 Dose: 81 mg Documented by: Atorvastatin Calcium (Atorvastatin 20 Mg Tab) 20 mg PO BEDTIME [facility] Last Admin: 06/08/20 21:51 Dose: 20 mg Documented by: Benzocaine/Menthol (Benzocaine/Cetylpyridinium/Menthol Lozenge) 1 lozenge MUCMEM Q1H PRN PRN Reason: Cough Last Admin: 06/09/20 00:23 Dose: 1 lozenge Documented by: Dexamethasone (Dexamethasone 4 Mg/Ml Sdv) 6 mg IVPUSH DAILY [facility] Stop: 06/12/20 09:01 Last Admin: 06/08/20 09:46 Dose: 6 mg Documented by: Dextrose/Water (50% Dextrose In Water 50 Ml Syringe) 50 ml IV Q15M PRN PRN Reason: Hypoglycemia Enoxaparin Sodium (Enoxaparin 80 Mg/0.8 Ml Syringe) 80 mg SUBCUT Q12HR [facility] Last Admin: 06/08/20 21:56 Dose: 80 mg Documented by: Glucagon (Glucagon,Human Recombinant 1 Mg Vial) 1 mg IM Q15M PRN PRN Reason: Hypoglycemia Remdesivir 100 mg/ Sodium (Chloride) 100 mls @ 100 mls/hr IV Q24H [facility] Stop: 06/09/20 18:59 Last Admin: 06/08/20 18:20 Dose: 100 mls/hr Documented by: Tocilizumab 640 mg/ Sodium (Chloride) 132 mls @ 132 mls/hr IV ONETIME ONE Stop: 06/09/20 09:59 Insulin Human Lispro (Insulin Lispro 100 Units/Ml 3 Ml Vial) 0 unit SUBCUT WITHMEALSANDBED [facility]; Protocol Last Admin: 06/08/20 21:48 Dose: 4 units Documented by: Lisinopril (Lisinopril 5 Mg Tab) 5 mg PO DAILY [facility] Last Admin: 06/08/20 08:28 Dose: 5 mg Documented by: Canagliflozin [ Invokana] 100 Mg TabletPt Own 100 mg PO DAILY [facility] Last Admin: 06/08/20 08:33 Dose: 100 mg Documented by: Ondansetron HCl (Ondansetron 4 Mg Tab.Dis) 4 mg PO Q6H PRN PRN Reason: nausea, able to take PO Sodium Chloride (Sodium Chloride 0.9% 10 Ml Syringe) 10 ml FLUSH ASDIRECTED PRN PRN Reason: Keep Vein Open Last Admin: 06/07/20 21:28 Dose: 10 ml Documented by: Discontinued Medications Albuterol (Albuterol 0.083% 2.5 Mg/3 Ml Neb Soln) 2.5 mg NEB Q2HR PRN PRN Reason: Dyspnea Enoxaparin Sodium (Enoxaparin 40 Mg/0.4 Ml Syringe) 40 mg SUBCUT DAILY [facility] Last Admin: 06/06/20 08:27 Dose: 40 mg Documented by: Enoxaparin Sodium (Enoxaparin 40 Mg/0.4 Ml Syringe) 40 mg SUBCUT ONETIME ONE Stop: 06/06/20 09:16 Last Admin: 06/06/20 10:17 Dose: 40 mg Documented by: Glyburide (Glyburide 5 Mg Tab) 10 mg PO BIDMEALS [facility] Last Admin: 06/07/20 09:00 Dose: 10 mg Documented by: Remdesivir 200 mg/ Sodium (Chloride) 250 mls @ 250 mls/hr IV ONETIME ONE Stop: 06/05/20 19:16 Last Infusion: 06/05/20 21:45 Dose: Infused Documented by: Tocilizumab 640 mg/ Sodium (Chloride) 132 mls @ 132 mls/hr IV ONETIME ONE Stop: 06/07/20 12:35 Last Admin: 06/08/20 09:02 Dose: Not Given Documented by: Insulin Human Lispro (Insulin Lispro 100 Units/Ml 3 Ml Vial) 5 unit SUBCUT ONETIME ONE Stop: 06/06/20 17:23 Last Admin: 06/06/20 18:10 Dose: 5 units Documented by: Iopamidol (Iopamidol 755 Mg/Ml 100 Ml Bottle) 100 ml IVPUSH ONETIME ONE Stop: 06/05/20 16:59 Last Admin: 06/05/20 17:25 Dose: 66 ml Documented by: Ketorolac Tromethamine (Ketorolac 30 Mg/Ml Sdv) 30 mg IVPUSH Q6H PRN PRN Reason: Pain (moderate 4-6) Metformin HCl (Metformin 500 Mg Tab) 1,000 mg PO BIDMEALS [facility] Last Admin: 06/07/20 09:01 Dose: Not Given Documented by: Ondansetron HCl (Ondansetron 4 Mg Tab.Dis) 4 mg PO Q8H PRN PRN Reason: Nausea - Exam General: Alert Lungs: Decreased Breath Sounds (Decreased breath sounds throughout but no audible abnormal sounds) Cardiovascular: Regular Rate, Regular Rhythm GI/Abdominal Exam: Normal Bowel Sounds, Soft, Non-Tender, No Distention Extremities: Normal Inspection, No Pedal Edema Psy/Mental Status: Normal Mood - Patient Data Lab Results Last 24 hrs: Laboratory Results - last 24 hr 06/08/20 06/08/20 06/08/20 Range/Units 06:15 08:13 11:23 WBC (5.0-10.0) 10^3/uL RBC (4.6-6.2) 10^6/uL Hgb (14.0-18.0) g/dL Hct (40.0-54.0) % MCV (80-100) fL MCH (27.0-34.0) pg MCHC (33.0-35.0) g/dL Plt Count (150-450) 10^3/uL Neut % (Auto) (42.2-75.2) % Lymph % (Auto) (20.5-50.1) % Dane % (Auto) (2-8) % Eos % (Auto) (1.0-3.0) % Baso % (Auto) (0.0-1.0) % Add Manual Diff Neutrophils % (Manual) 83 H (42-75) % Lymphocytes % (Manual) 10 L (20-50) % Monocytes % (Manual) 7 (2-8) % Sodium (136-145) mmol/L Potassium (3.5-5.1) mmol/L Chloride (98-107) mmol/L Carbon Dioxide (21-32) mmol/L Anion Gap (7-13) mEq/L BUN (7-18) mg/dL Creatinine (0.70-1.30) mg/dL Est Cr Clr Drug Dosing mL/min Estimated GFR (MDRD) BUN/Creatinine Ratio (No establ ref range) Glucose (70-99) mg/dL POC Glucose 154 H 226 H (70-99) mg/dL Calcium (8.5-10.1) mg/dL Total Bilirubin (0.2-1.0) mg/dL Direct Bilirubin (0.0-0.2) mg/dL AST (15-37) U/L ALT (16-63) U/L Alkaline Phosphatase (46-116) U/L Total Protein (6.4-8.2) g/dL Albumin (3.4-5.0) g/dL Globulin Albumin/Globulin Ratio 06/08/20 06/08/20 06/09/20 Range/Units 17:08 21:41 05:40 WBC (5.0-10.0) 10^3/uL RBC (4.6-6.2) 10^6/uL Hgb (14.0-18.0) g/dL Hct (40.0-54.0) % MCV (80-100) fL MCH (27.0-34.0) pg MCHC (33.0-35.0) g/dL Plt Count (150-450) 10^3/uL Neut % (Auto) (42.2-75.2) % Lymph % (Auto) (20.5-50.1) % Dane % (Auto) (2-8) % Eos % (Auto) (1.0-3.0) % Baso % (Auto) (0.0-1.0) % Add Manual Diff Neutrophils % (Manual) (42-75) % Lymphocytes % (Manual) (20-50) % Monocytes % (Manual) (2-8) % Sodium 136 (136-145) mmol/L Potassium 5.1 (3.5-5.1) mmol/L Chloride 101 (98-107) mmol/L Carbon Dioxide 25 (21-32) mmol/L Anion Gap 15.1 H (7-13) mEq/L BUN 23 H (7-18) mg/dL Creatinine 0.83 (0.70-1.30) mg/dL Est Cr Clr Drug Dosing 86.99 mL/min Estimated GFR (MDRD) > 60 BUN/Creatinine Ratio 27.7 (No establ ref range) Glucose 200 H (70-99) mg/dL POC Glucose 211 H 235 H (70-99) mg/dL Calcium 8.2 L (8.5-10.1) mg/dL Total Bilirubin 0.5 (0.2-1.0) mg/dL Direct Bilirubin 0.2 (0.0-0.2) mg/dL AST 38 H (15-37) U/L ALT 63 (16-63) U/L Alkaline Phosphatase 66 (46-116) U/L Total Protein 5.8 L (6.4-8.2) g/dL Albumin 2.6 L (3.4-5.0) g/dL Globulin 3.2 Albumin/Globulin Ratio 0.81 // Range/Units 05:40 WBC 11.1 H (5.0-10.0) 10^3/uL RBC 4.57 L (4.6-6.2) 10^6/uL Hgb 13.9 L (14.0-18.0) g/dL Hct 41.6 (40.0-54.0) % MCV 91.0 (80-100) fL MCH 30.4 (27.0-34.0) pg MCHC 33.4 (33.0-35.0) g/dL Plt Count 540 H (150-450) 10^3/uL Neut % (Auto) 83.5 H (42.2-75.2) % Lymph % (Auto) 9.4 L (20.5-50.1) % Dane % (Auto) 6.8 (2-8) % Eos % (Auto) 0.0 L (1.0-3.0) % Baso % (Auto) 0.3 (0.0-1.0) % Add Manual Diff Neutrophils % (Manual) (42-75) % Lymphocytes % (Manual) (20-50) % Monocytes % (Manual) (2-8) % Sodium (136-145) mmol/L Potassium (3.5-5.1) mmol/L Chloride (98-107) mmol/L Carbon Dioxide (21-32) mmol/L Anion Gap (7-13) mEq/L BUN (7-18) mg/dL Creatinine (0.70-1.30) mg/dL Est Cr Clr Drug Dosing mL/min Estimated GFR (MDRD) BUN/Creatinine Ratio (No establ ref range) Glucose (70-99) mg/dL POC Glucose (70-99) mg/dL Calcium (8.5-10.1) mg/dL Total Bilirubin (0.2-1.0) mg/dL Direct Bilirubin (0.0-0.2) mg/dL AST (15-37) U/L ALT (16-63) U/L Alkaline Phosphatase (46-116) U/L Total Protein (6.4-8.2) g/dL Albumin (3.4-5.0) g/dL Globulin Albumin/Globulin Ratio Result Diagrams: 06/09/20 05:40 06/09/20 05:40 Micah Results Last 24 hrs: Microbiology 06/05/20 15:42 Aerobic Blood Culture - Preliminary Blood - Venous - Iv Start NO GROWTH AFTER 3 DAYS Anaerobic Blood Culture - Preliminary NO GROWTH AFTER 3 DAYS Sepsis Event Note - Evaluation Sepsis Screening Result: Sepsis Risk - Focused Exam Vital Signs: Vital Signs Temp Pulse Resp BP Pulse Ox 06/09/20 03:19 40 L 20 99 06/08/20 23:12 97.4 F 56 L 28 H 124/59 L 94 L - Problem List Review Problem List Initiated/Reviewed/Updated: Yes - My Orders Last 24 Hours: My Active Orders 06/09/20 06:57 Chest 1V Frontal [CR] Routine 06/09/20 09:00 Tocilizumab [Actemra] 640 mg Sodium Chloride 0.9% [Normal Saline] 100 ml IV ONETIME - Plan Plan:: 1. Sepsis. (Nonsevere, nonshock). Secondary to acute coronavirus 19 infection. Remains euvolemic. Sepsis physiology resolved at this time. 2. Acute hypoxic respiratory failure in the setting of acute novel coronavirus 19 infection/pneumonitis. Status post remdesivir protocol. Status post full course of dexamethasone Initiate convalescent plasma and Tocilizumab infusion when available (I am told today) transfusion consent has been requested from the patient and he has given us consent both verbally and has signed appropriate documents. Patient remains on weight-based Lovenox due to significant pro inflammatory marker elevation. Continue vitamin C as well as zinc oral supplementation. Remains on high flow oxygen but is doing well weaning. Respiratory therapy to be proactive in trying to wean off high flow entirely today. Continue proning. Repeat chest x-ray pending this morning. 3. Type 2 diabetes mellitus. Continue to hold oral hypoglycemics while in the hospital. Initiate hospital hyperglycemia protocol. 4. Hypertension. Continue home medications at regular dose. 5. Hyperlipidemia. Continue daily statin therapy. CODE STATUS: Full code. DVT prophylaxis with Lovenox. Total amount of critical care time 30 minutes.
[2020-06-09] MEDS: amLODIPine 5 MG Tab PO SCH (08:37)
[2020-06-09] MEDS: Ascorbic Acid 500 MG Tab PO SCH ×2 (08:38→20:38)
[2020-06-09] MEDS: Aspirin 81 MG Tab.EC PO SCH (08:38)
[2020-06-09] MEDS: Lisinopril 5 MG Tab PO SCH (08:39)
[2020-06-09] MEDS: CANAGLIFLOZIN 100 MG PO SCH (08:40)
[2020-06-09] MEDS: Enoxaparin 80 MG/0.8 ML Syringe SUBCUT SCH ×2 (08:42→20:39)
[2020-06-09] MEDS: Insulin Lispro 100 Units/ML 3 ML Vial SUBCUT SCH ×4 (08:43→20:40)
[2020-06-09] MEDS: Sodium Chloride 0.9% 10 ML Syringe FLUSH PRN ×4 (08:45→18:05)
[2020-06-09] MEDS: Dexamethasone 4 MG/ML SDV IVPUSH SCH (08:46)
--- NOTE | 2020-06-09 12:15 | CR ---
EXAMINATION: Chest 1V Frontal SEX: Male AGE: 65 years CLINICAL HISTORY: 65-year-old hospitalized male with COVID Pneumonitis. Comparison 06 June and 07 Jun 2020. Interpretation: Abnormal but stable with subtle relative clearing i.e. improvement. Generally poor inspiratory effort. 1. Normal cardiac silhouette i.e. size and configuration. No new pulmonary vascular congestion, cephalization of flow, alveolar edema or dependent pleural fluid accumulation (effusions). External cardiac sonographer leads. 2. Reproducible peripheral pleural parenchymal densities (infiltrate, infarct, atelectasis and/or fibrosis) less prominent. 3. No new parenchymal lung nodule or mass lesion. No hilar or mediastinal lymphadenopathy. 4. No new focal areas of alveolar consolidation or peripheral "groundglass" interstitial lung densities.
[2020-06-09] MEDS: REMDESIVIR 100 MG in Sodium Chloride 0.9% 100 ML IV SCH (18:04)
[2020-06-09] MEDS: atorvaSTATin 20 MG Tab PO SCH (20:38)
[2020-06-10 06:48] LABS: ANION GAP 10.6 mEq/L (7-13); CHLORIDE,CL 100 mmol/L (98-107); SODIUM,NA 135 mmol/L (136-145)
--- NOTE | 2020-06-10 07:57 | PCM.PN ---
- General Info Date of Service: 06/10/20 Admission Dx/Problem (Free Text): Sepsis. COVID-19 pneumonitis/pneumonia. Acute hypoxic respiratory failure. Subjective Update: Hospital day 5. Patient seen and examined at bedside. No acute overnight events. No specific new nursing concerns. Patient was off oxygen for a significant amount of the afternoon and into the evening last night. Eventually got a little tired and tachypneic requiring 2 L of supplemental oxygen and has been performing well. Patient does not offer any new specific complaints and is feeling better. Status post Tocilizumab and convalescent plasma infusion yesterday without complication. Denies any shortness of breath, sputum production, fever, pleurisy. - Patient Data Vitals - Most Recent: Last Vital Signs Temp 97.7 F 06/10/20 00:00 Pulse 37 L 06/10/20 04:00 Resp 19 06/10/20 00:00 BP 128/65 06/10/20 00:00 Pulse Ox 100 06/10/20 04:00 Weight - Most Recent: 174 lb I&O - Last 24 Hours: Intake & Output 06/09/20 06/10/20 06/10/20 22:59 06:59 14:59 Intake Total 918 950 Output Total 1700 700 Balance -782 250 Lab Results Last 24 Hours: Laboratory Results - last 24 hr 06/09/20 06/09/20 06/09/20 Range/Units 08:30 11:54 16:28 Sodium (136-145) mmol/L Potassium (3.5-5.1) mmol/L Chloride (98-107) mmol/L Carbon Dioxide (21-32) mmol/L Anion Gap (7-13) mEq/L BUN (7-18) mg/dL Creatinine (0.70-1.30) mg/dL Est Cr Clr Drug Dosing mL/min Estimated GFR (MDRD) BUN/Creatinine Ratio (No establ ref range) Glucose (70-99) mg/dL POC Glucose 166 H 233 H 225 H (70-99) mg/dL Calcium (8.5-10.1) mg/dL Total Bilirubin (0.2-1.0) mg/dL Direct Bilirubin (0.0-0.2) mg/dL AST (15-37) U/L ALT (16-63) U/L Alkaline Phosphatase (46-116) U/L Total Protein (6.4-8.2) g/dL Albumin (3.4-5.0) g/dL Globulin Albumin/Globulin Ratio 06/09/20 06/10/20 Range/Units 20:36 06:20 Sodium 135 L (136-145) mmol/L Potassium 4.6 (3.5-5.1) mmol/L Chloride 100 (98-107) mmol/L Carbon Dioxide 29 (21-32) mmol/L Anion Gap 10.6 (7-13) mEq/L BUN 23 H (7-18) mg/dL Creatinine 0.85 (0.70-1.30) mg/dL Est Cr Clr Drug Dosing 84.94 mL/min Estimated GFR (MDRD) > 60 BUN/Creatinine Ratio 27.1 (No establ ref range) Glucose 177 H (70-99) mg/dL POC Glucose 296 H (70-99) mg/dL Calcium 8.5 (8.5-10.1) mg/dL Total Bilirubin 0.7 (0.2-1.0) mg/dL Direct Bilirubin 0.2 (0.0-0.2) mg/dL AST 32 (15-37) U/L ALT 63 (16-63) U/L Alkaline Phosphatase 62 (46-116) U/L Total Protein 6.6 (6.4-8.2) g/dL Albumin 2.7 L (3.4-5.0) g/dL Globulin 3.9 Albumin/Globulin Ratio 0.69 Micah Results Last 24 Hours: Microbiology 06/05/20 15:42 Aerobic Blood Culture - Preliminary Blood - Venous - Iv Start NO GROWTH AFTER 4 DAYS Anaerobic Blood Culture - Preliminary NO GROWTH AFTER 4 DAYS Med Orders - Current: Current Medications Acetaminophen (Acetaminophen 325 Mg Tab) 650 mg PO Q4H PRN PRN Reason: Pain (Mild 1-3)/fever Albuterol (Albuterol 6.7 Gm Inhaler) 0 gm INH Q2H PRN PRN Reason: Shortness of Breath Last Admin: 06/07/20 06:10 Dose: 2 puff Documented by: Amlodipine Besylate (Amlodipine 5 Mg Tab) 5 mg PO DAILY [facility] Last Admin: 06/09/20 08:37 Dose: 5 mg Documented by: Ascorbic Acid (Ascorbic Acid 500 Mg Tab) 500 mg PO BID [facility] Last Admin: 06/09/20 20:38 Dose: 500 mg Documented by: Aspirin (Aspirin 81 Mg Tab.Ec) 81 mg PO DAILY [facility] Last Admin: 06/09/20 08:38 Dose: 81 mg Documented by: Atorvastatin Calcium (Atorvastatin 20 Mg Tab) 20 mg PO BEDTIME [facility] Last Admin: 06/09/20 20:38 Dose: 20 mg Documented by: Benzocaine/Menthol (Benzocaine/Cetylpyridinium/Menthol Lozenge) 1 lozenge MUCMEM Q1H PRN PRN Reason: Cough Last Admin: 06/09/20 20:50 Dose: 1 lozenge Documented by: Dexamethasone (Dexamethasone 4 Mg/Ml Sdv) 6 mg IVPUSH DAILY [facility] Stop: 06/12/20 09:01 Last Admin: 06/09/20 08:46 Dose: 6 mg Documented by: Dextrose/Water (50% Dextrose In Water 50 Ml Syringe) 50 ml IV Q15M PRN PRN Reason: Hypoglycemia Enoxaparin Sodium (Enoxaparin 80 Mg/0.8 Ml Syringe) 80 mg SUBCUT Q12HR [facility] Last Admin: 06/09/20 20:39 Dose: 80 mg Documented by: Glucagon (Glucagon,Human Recombinant 1 Mg Vial) 1 mg IM Q15M PRN PRN Reason: Hypoglycemia Insulin Human Lispro (Insulin Lispro 100 Units/Ml 3 Ml Vial) 0 unit SUBCUT WITHMEALSANDBED [facility]; Protocol Last Admin: 06/09/20 20:40 Dose: 6 units Documented by: Lisinopril (Lisinopril 5 Mg Tab) 5 mg PO DAILY [facility] Last Admin: 06/09/20 08:39 Dose: 5 mg Documented by: Canagliflozin [ Invokana] 100 Mg TabletPt Own 100 mg PO DAILY [facility] Last Admin: 06/09/20 08:40 Dose: 100 mg Documented by: Ondansetron HCl (Ondansetron 4 Mg Tab.Dis) 4 mg PO Q6H PRN PRN Reason: nausea, able to take PO Sodium Chloride (Sodium Chloride 0.9% 10 Ml Syringe) 10 ml FLUSH ASDIRECTED PRN PRN Reason: Keep Vein Open Last Admin: 06/09/20 18:05 Dose: 10 ml Documented by: Discontinued Medications Albuterol (Albuterol 0.083% 2.5 Mg/3 Ml Neb Soln) 2.5 mg NEB Q2HR PRN PRN Reason: Dyspnea Enoxaparin Sodium (Enoxaparin 40 Mg/0.4 Ml Syringe) 40 mg SUBCUT DAILY [facility] Last Admin: 06/06/20 08:27 Dose: 40 mg Documented by: Enoxaparin Sodium (Enoxaparin 40 Mg/0.4 Ml Syringe) 40 mg SUBCUT ONETIME ONE Stop: 06/06/20 09:16 Last Admin: 06/06/20 10:17 Dose: 40 mg Documented by: Glyburide (Glyburide 5 Mg Tab) 10 mg PO BIDMEALS [facility] Last Admin: 06/07/20 09:00 Dose: 10 mg Documented by: Remdesivir 200 mg/ Sodium (Chloride) 250 mls @ 250 mls/hr IV ONETIME ONE Stop: 06/05/20 19:16 Last Infusion: 06/05/20 21:45 Dose: Infused Documented by: Remdesivir 100 mg/ Sodium (Chloride) 100 mls @ 100 mls/hr IV Q24H [facility] Stop: 06/09/20 18:59 Last Admin: 06/09/20 18:04 Dose: 100 mls/hr Documented by: Tocilizumab 640 mg/ Sodium (Chloride) 132 mls @ 132 mls/hr IV ONETIME ONE Stop: 06/07/20 12:35 Last Admin: 06/08/20 09:02 Dose: Not Given Documented by: Tocilizumab 640 mg/ Sodium (Chloride) 132 mls @ 132 mls/hr IV ONETIME ONE Stop: 06/09/20 09:59 Last Admin: 06/09/20 12:56 Dose: Not Given Documented by: Tocilizumab 640 mg/ Sodium (Chloride) 132 mls @ 132 mls/hr IV ONETIME ONE Stop: 06/09/20 12:59 Last Infusion: 06/09/20 15:53 Dose: Infused Documented by: Insulin Human Lispro (Insulin Lispro 100 Units/Ml 3 Ml Vial) 5 unit SUBCUT ONETIME ONE Stop: 06/06/20 17:23 Last Admin: 06/06/20 18:10 Dose: 5 units Documented by: Iopamidol (Iopamidol 755 Mg/Ml 100 Ml Bottle) 100 ml IVPUSH ONETIME ONE Stop: 06/05/20 16:59 Last Admin: 06/05/20 17:25 Dose: 66 ml Documented by: Ketorolac Tromethamine (Ketorolac 30 Mg/Ml Sdv) 30 mg IVPUSH Q6H PRN PRN Reason: Pain (moderate 4-6) Metformin HCl (Metformin 500 Mg Tab) 1,000 mg PO BIDMEALS JENY Last Admin: 06/07/20 09:01 Dose: Not Given Documented by: Ondansetron HCl (Ondansetron 4 Mg Tab.Dis) 4 mg PO Q8H PRN PRN Reason: Nausea - Exam Quality Assessment: Supplemental Oxygen General: Alert Lungs: Decreased Breath Sounds (Otherwise clear throughout) Cardiovascular: Regular Rate, Irregular Rhythm (Sinus arrhythmia noted on telemetry which has been persistent.) GI/Abdominal Exam: Normal Bowel Sounds, Soft, Non-Tender Extremities: Normal Inspection, No Pedal Edema Skin: Warm Psy/Mental Status: Normal Affect - Patient Data Lab Results Last 24 hrs: Laboratory Results - last 24 hr 06/09/20 06/09/20 06/09/20 Range/Units 08:30 11:54 16:28 Sodium (136-145) mmol/L Potassium (3.5-5.1) mmol/L Chloride (98-107) mmol/L Carbon Dioxide (21-32) mmol/L Anion Gap (7-13) mEq/L BUN (7-18) mg/dL Creatinine (0.70-1.30) mg/dL Est Cr Clr Drug Dosing mL/min Estimated GFR (MDRD) BUN/Creatinine Ratio (No establ ref range) Glucose (70-99) mg/dL POC Glucose 166 H 233 H 225 H (70-99) mg/dL Calcium (8.5-10.1) mg/dL Total Bilirubin (0.2-1.0) mg/dL Direct Bilirubin (0.0-0.2) mg/dL AST (15-37) U/L ALT (16-63) U/L Alkaline Phosphatase (46-116) U/L Total Protein (6.4-8.2) g/dL Albumin (3.4-5.0) g/dL Globulin Albumin/Globulin Ratio 06/09/20 06/10/20 Range/Units 20:36 06:20 Sodium 135 L (136-145) mmol/L Potassium 4.6 (3.5-5.1) mmol/L Chloride 100 (98-107) mmol/L Carbon Dioxide 29 (21-32) mmol/L Anion Gap 10.6 (7-13) mEq/L BUN 23 H (7-18) mg/dL Creatinine 0.85 (0.70-1.30) mg/dL Est Cr Clr Drug Dosing 84.94 mL/min Estimated GFR (MDRD) > 60 BUN/Creatinine Ratio 27.1 (No establ ref range) Glucose 177 H (70-99) mg/dL POC Glucose 296 H (70-99) mg/dL Calcium 8.5 (8.5-10.1) mg/dL Total Bilirubin 0.7 (0.2-1.0) mg/dL Direct Bilirubin 0.2 (0.0-0.2) mg/dL AST 32 (15-37) U/L ALT 63 (16-63) U/L Alkaline Phosphatase 62 (46-116) U/L Total Protein 6.6 (6.4-8.2) g/dL Albumin 2.7 L (3.4-5.0) g/dL Globulin 3.9 Albumin/Globulin Ratio 0.69 Result Diagrams: 06/09/20 05:40 06/10/20 06:20 Micah Results Last 24 hrs: Microbiology 06/05/20 15:42 Aerobic Blood Culture - Preliminary Blood - Venous - Iv Start NO GROWTH AFTER 4 DAYS Anaerobic Blood Culture - Preliminary NO GROWTH AFTER 4 DAYS Sepsis Event Note - Evaluation Sepsis Screening Result: No Definite Risk - Focused Exam Vital Signs: Vital Signs Temp Pulse Resp BP Pulse Ox 06/10/20 04:00 37 L 100 06/10/20 00:00 97.7 F 40 L 19 128/65 96 06/09/20 20:00 97.9 F 74 24 H 146/70 H 94 L - Problem List Review Problem List Initiated/Reviewed/Updated: Yes - Plan Plan:: 1. Sepsis. (Nonsevere, nonshock). Secondary to acute coronavirus 19 infection. Remains euvolemic. Sepsis physiology resolved at this time. 2. Acute hypoxic respiratory failure in the setting of acute novel coronavirus 19 infection/pneumonitis. Status post remdesivir protocol. Continue dexamethasone Status post convalescent plasma and Tocilizumab infusion 06/09/2020. Patient remains on weight-based Lovenox due to significant pro inflammatory marker elevation. Continue vitamin C as well as zinc oral supplementation. Remove supplemental oxygen today. Will assess his performance status off O2. Depending on how he does, will entertain disposition within the next 48 hours on supplemental oxygen. Continue voluntary proning. Repeat chest x-ray yesterday essentially unchanged, despite patient improving. 3. Type 2 diabetes mellitus. Continue to hold oral hypoglycemics while in the hospital. Initiate hospital hyperglycemia protocol. 4. Hypertension. Continue home medications at regular dose. 5. Hyperlipidemia. Continue daily statin therapy. CODE STATUS: Full code. DVT prophylaxis with Lovenox. No longer requiring critical care level of assessment and treatment.
[2020-06-10] MEDS: Aspirin 81 MG Tab.EC PO SCH (08:21)
[2020-06-10] MEDS: Lisinopril 5 MG Tab PO SCH (08:21)
[2020-06-10] MEDS: amLODIPine 5 MG Tab PO SCH (08:21)
[2020-06-10] MEDS: CANAGLIFLOZIN 100 MG PO SCH (08:22)
[2020-06-10] MEDS: Dexamethasone 4 MG/ML SDV IVPUSH SCH (08:24)
[2020-06-10] MEDS: Insulin Lispro 100 Units/ML 3 ML Vial SUBCUT SCH ×4 (08:32→20:44)
[2020-06-10] MEDS: Enoxaparin 80 MG/0.8 ML Syringe SUBCUT SCH ×2 (08:34→20:40)
[2020-06-10] MEDS: Ascorbic Acid 500 MG Tab PO SCH ×2 (10:01→20:40)
[2020-06-10] MEDS: atorvaSTATin 20 MG Tab PO SCH (20:39)
[2020-06-10] MEDS: Benzocaine/Cetylpyridinium/Menthol Lozenge MUCMEM PRN (22:28)
--- NOTE | 2020-06-11 07:45 | PCM.PN ---
- General Info Date of Service: 06/11/20 Admission Dx/Problem (Free Text): Sepsis. COVID-19 pneumonitis/pneumonia. Acute hypoxic respiratory failure. Subjective Update: Hospital day 7. Patient seen and examined at bedside. No acute events overnight. No specific nursing concerns. Patient has remained off oxygen for 24 hours at this point. Patient still complains of cough but nonproductive. No febrile temperatures. Nontoxic. Activity normal throughout the day. Continues to voluntarily prone. Discussed with patient discharged today with as needed oxygen. Patient would like to stay another day as his is worried about him going home as she is now montilla positive as well. We will entertain discharge tomorrow on O2 as needed, instructions to remain isolated, and continue therapeutic Lovenox for hypercoagulable prophylaxis. - Patient Data Vitals - Most Recent: Last Vital Signs Temp 97.9 F 06/11/20 04:00 Pulse 51 L 06/11/20 04:00 Resp 18 06/11/20 04:00 BP 145/89 H 06/11/20 04:00 Pulse Ox 96 06/11/20 04:00 Weight - Most Recent: 174 lb I&O - Last 24 Hours: Intake & Output 06/10/20 06/11/20 06/11/20 22:59 06:59 14:59 Intake Total 1950 600 Output Total 1000 Balance 950 600 Lab Results Last 24 Hours: Laboratory Results - last 24 hr 06/10/20 06/10/20 06/10/20 Range/Units 08:06 12:02 17:15 POC Glucose 168 H 255 H 241 H (70-99) mg/dL Direct Bilirubin (0.0-0.2) mg/dL 06/10/20 06/11/20 Range/Units 20:44 06:18 POC Glucose 299 H (70-99) mg/dL Direct Bilirubin 0.2 (0.0-0.2) mg/dL Micah Results Last 24 Hours: Microbiology 06/05/20 15:42 Aerobic Blood Culture - Final Blood - Venous - Iv Start NO GROWTH AFTER 5 DAYS Anaerobic Blood Culture - Final NO GROWTH AFTER 5 DAYS Med Orders - Current: Current Medications Acetaminophen (Acetaminophen 325 Mg Tab) 650 mg PO Q4H PRN PRN Reason: Pain (Mild 1-3)/fever Albuterol (Albuterol 6.7 Gm Inhaler) 0 gm INH Q2H PRN PRN Reason: Shortness of Breath Last Admin: 06/07/20 06:10 Dose: 2 puff Documented by: Amlodipine Besylate (Amlodipine 5 Mg Tab) 5 mg PO DAILY [facility] Last Admin: 06/10/20 08:21 Dose: 5 mg Documented by: Ascorbic Acid (Ascorbic Acid 500 Mg Tab) 500 mg PO BID [facility] Last Admin: 06/10/20 20:40 Dose: 500 mg Documented by: Aspirin (Aspirin 81 Mg Tab.Ec) 81 mg PO DAILY [facility] Last Admin: 06/10/20 08:21 Dose: 81 mg Documented by: Atorvastatin Calcium (Atorvastatin 20 Mg Tab) 20 mg PO BEDTIME [facility] Last Admin: 06/10/20 20:39 Dose: 20 mg Documented by: Benzocaine/Menthol (Benzocaine/Cetylpyridinium/Menthol Lozenge) 1 lozenge MUCMEM Q1H PRN PRN Reason: Cough Last Admin: 06/10/20 22:28 Dose: 1 lozenge Documented by: Dexamethasone (Dexamethasone 4 Mg/Ml Sdv) 6 mg IVPUSH DAILY [facility] Stop: 06/12/20 09:01 Last Admin: 06/10/20 08:24 Dose: 6 mg Documented by: Dextrose/Water (50% Dextrose In Water 50 Ml Syringe) 50 ml IV Q15M PRN PRN Reason: Hypoglycemia Enoxaparin Sodium (Enoxaparin 80 Mg/0.8 Ml Syringe) 80 mg SUBCUT Q12HR [facility] Last Admin: 06/10/20 20:40 Dose: 80 mg Documented by: Glucagon (Glucagon,Human Recombinant 1 Mg Vial) 1 mg IM Q15M PRN PRN Reason: Hypoglycemia Insulin Human Lispro (Insulin Lispro 100 Units/Ml 3 Ml Vial) 0 unit SUBCUT WITHMEALSANDBED [facility]; Protocol Last Admin: 06/10/20 20:44 Dose: 6 units Documented by: Lisinopril (Lisinopril 5 Mg Tab) 5 mg PO DAILY [facility] Last Admin: 06/10/20 08:21 Dose: 5 mg Documented by: Canagliflozin [ Invokana] 100 Mg TabletPt Own 100 mg PO DAILY [facility] Last Admin: 06/10/20 08:22 Dose: 100 mg Documented by: Ondansetron HCl (Ondansetron 4 Mg Tab.Dis) 4 mg PO Q6H PRN PRN Reason: nausea, able to take PO Sodium Chloride (Sodium Chloride 0.9% 10 Ml Syringe) 10 ml FLUSH ASDIRECTED PRN PRN Reason: Keep Vein Open Last Admin: 06/09/20 18:05 Dose: 10 ml Documented by: Discontinued Medications Albuterol (Albuterol 0.083% 2.5 Mg/3 Ml Neb Soln) 2.5 mg NEB Q2HR PRN PRN Reason: Dyspnea Enoxaparin Sodium (Enoxaparin 40 Mg/0.4 Ml Syringe) 40 mg SUBCUT DAILY [facility] Last Admin: 06/06/20 08:27 Dose: 40 mg Documented by: Enoxaparin Sodium (Enoxaparin 40 Mg/0.4 Ml Syringe) 40 mg SUBCUT ONETIME ONE Stop: 06/06/20 09:16 Last Admin: 06/06/20 10:17 Dose: 40 mg Documented by: Glyburide (Glyburide 5 Mg Tab) 10 mg PO BIDMEALS [facility] Last Admin: 06/07/20 09:00 Dose: 10 mg Documented by: Remdesivir 200 mg/ Sodium (Chloride) 250 mls @ 250 mls/hr IV ONETIME ONE Stop: 06/05/20 19:16 Last Infusion: 06/05/20 21:45 Dose: Infused Documented by: Remdesivir 100 mg/ Sodium (Chloride) 100 mls @ 100 mls/hr IV Q24H [facility] Stop: 06/09/20 18:59 Last Admin: 06/09/20 18:04 Dose: 100 mls/hr Documented by: Tocilizumab 640 mg/ Sodium (Chloride) 132 mls @ 132 mls/hr IV ONETIME ONE Stop: 06/07/20 12:35 Last Admin: 06/08/20 09:02 Dose: Not Given Documented by: Tocilizumab 640 mg/ Sodium (Chloride) 132 mls @ 132 mls/hr IV ONETIME ONE Stop: 06/09/20 09:59 Last Admin: 06/09/20 12:56 Dose: Not Given Documented by: Tocilizumab 640 mg/ Sodium (Chloride) 132 mls @ 132 mls/hr IV ONETIME ONE Stop: 06/09/20 12:59 Last Infusion: 06/09/20 15:53 Dose: Infused Documented by: Insulin Human Lispro (Insulin Lispro 100 Units/Ml 3 Ml Vial) 5 unit SUBCUT ONETIME ONE Stop: 06/06/20 17:23 Last Admin: 06/06/20 18:10 Dose: 5 units Documented by: Iopamidol (Iopamidol 755 Mg/Ml 100 Ml Bottle) 100 ml IVPUSH ONETIME ONE Stop: 06/05/20 16:59 Last Admin: 06/05/20 17:25 Dose: 66 ml Documented by: Ketorolac Tromethamine (Ketorolac 30 Mg/Ml Sdv) 30 mg IVPUSH Q6H PRN PRN Reason: Pain (moderate 4-6) Metformin HCl (Metformin 500 Mg Tab) 1,000 mg PO BIDMEALS [facility] Last Admin: 06/07/20 09:01 Dose: Not Given Documented by: Ondansetron HCl (Ondansetron 4 Mg Tab.Dis) 4 mg PO Q8H PRN PRN Reason: Nausea - Exam Quality Assessment: No: Supplemental Oxygen General: Alert Lungs: Rales (Lower padron) Cardiovascular: Irregular Rhythm (Sinus arrhythmia.) GI/Abdominal Exam: Normal Bowel Sounds, Soft, Non-Tender, No Distention Extremities: Normal Inspection, No Pedal Edema Skin: Warm - Patient Data Lab Results Last 24 hrs: Laboratory Results - last 24 hr 06/10/20 06/10/20 06/10/20 Range/Units 08:06 12:02 17:15 POC Glucose 168 H 255 H 241 H (70-99) mg/dL Direct Bilirubin (0.0-0.2) mg/dL 06/10/20 06/11/20 Range/Units 20:44 06:18 POC Glucose 299 H (70-99) mg/dL Direct Bilirubin 0.2 (0.0-0.2) mg/dL Result Diagrams: 06/09/20 05:40 06/10/20 06:20 Micah Results Last 24 hrs: Microbiology 06/05/20 15:42 Aerobic Blood Culture - Final Blood - Venous - Iv Start NO GROWTH AFTER 5 DAYS Anaerobic Blood Culture - Final NO GROWTH AFTER 5 DAYS Sepsis Event Note - Evaluation Sepsis Screening Result: No Definite Risk - Focused Exam Vital Signs: Vital Signs Temp Pulse Resp BP Pulse Ox 06/11/20 04:00 97.9 F 51 L 18 145/89 H 96 06/11/20 00:00 40 L 17 95 06/10/20 20:00 97.8 F 73 23 H 129/84 94 L - Problem List Review Problem List Initiated/Reviewed/Updated: Yes - Plan Plan:: 1. Sepsis. (Nonsevere, nonshock). Secondary to acute coronavirus 19 infection. Remains euvolemic. Sepsis physiology resolved. 2. Acute hypoxic respiratory failure in the setting of acute novel coronavirus 19 infection/pneumonitis. Status post remdesivir protocol. Continue dexamethasone Status post convalescent plasma and Tocilizumab infusion 06/09/2020. Patient remains on weight-based Lovenox due to significant pro inflammatory marker elevation. Continue vitamin C as well as zinc oral supplementation. Remains off oxygen but would like to entertain discharge tomorrow. Continue voluntary proning. 3. Type 2 diabetes mellitus. Continue to hold oral hypoglycemics while in the hospital. Initiate hospital hyperglycemia protocol. 4. Hypertension. Continue home medications at regular dose. 5. Hyperlipidemia. Continue daily statin therapy. CODE STATUS: Full code. DVT prophylaxis with Lovenox. Disposition; within 24 hours.
[2020-06-11] MEDS: Ascorbic Acid 500 MG Tab PO SCH ×2 (08:13→20:47)
[2020-06-11] MEDS: Aspirin 81 MG Tab.EC PO SCH (08:13)
[2020-06-11] MEDS: amLODIPine 5 MG Tab PO SCH (08:13)
[2020-06-11] MEDS: Dexamethasone 4 MG/ML SDV IVPUSH SCH (08:13)
[2020-06-11] MEDS: Lisinopril 5 MG Tab PO SCH (08:13)
[2020-06-11] MEDS: Enoxaparin 80 MG/0.8 ML Syringe SUBCUT SCH ×2 (08:14→20:48)
[2020-06-11] MEDS: CANAGLIFLOZIN 100 MG PO SCH (08:15)
[2020-06-11] MEDS: Insulin Lispro 100 Units/ML 3 ML Vial SUBCUT SCH ×4 (08:16→21:08)
[2020-06-11] MEDS: Sodium Chloride 0.9% 10 ML Syringe FLUSH PRN (20:47)
[2020-06-11] MEDS: atorvaSTATin 20 MG Tab PO SCH (20:47)
[2020-06-11] MEDS: Benzocaine/Cetylpyridinium/Menthol Lozenge MUCMEM PRN (21:10)
--- NOTE | 2020-06-12 07:31 | PCM.DCSUM1 ---
Discharge Summary - Hospital Course Free Text/Narrative:: 1. Sepsis. (Nonsevere, nonshock). Secondary to acute coronavirus 19 infection. Remains euvolemic. Sepsis physiology resolved. 2. Acute hypoxic respiratory failure in the setting of acute novel coronavirus 19 infection/pneumonitis. Patient admitted to the hospitalist service for further work-up and management. Patient with flagrant COVID-19 pneumonitis upon imaging. Requiring high flow nasal cannula for supplemental oxygen support. Patient was admitted on intensive care level. He was initially requiring high flow at at least 40 L/min and between 50 and 80% FiO2. Patient was initiated on remdesivir and dexamethasone protocol which she continued throughout the admission. Patient had to await delivery of convalescent plasma and Tocilizumab until day 4 of his admission. Patient was infused with these products without complication. The patient self proned multiple times a day. Due to significant increase in pro inflammatory markers, the patient was initiated on weight-based Lovenox for hypercoagulable prophylaxis which she will continue for at least 14 days post discharge. Patient was given teaching on Lovenox self injection. The patient will be sent home with a prednisone taper as he was on dexamethasone protocol. Patient was entirely weaned off oxygen at the time of discharge, however, due to significant cough and residual atelectasis and mucous plugging evident on chest x-ray he will have supplemental oxygen available and delivered to the home in the event he becomes symptomatic. Patient developed a sinus arrhythmia while in the hospital likely secondary to cardiac inflammation in the setting of acute COVID-19. An echocardiogram has been arranged for outpatient examination. Patient also sent home on [place]. Patient instructed to follow-up with PCP within 1 week. 3. Type 2 diabetes mellitus. Hospital hyperglycemia protocol was invoked while admitted. His home hypoglycemics were held. Resumed home medications at the time of discharge. 4. Hypertension. Continued home medications at regular dose. 5. Hyperlipidemia. Continued daily statin therapy. CODE STATUS: Full code. DVT prophylaxis with Lovenox. HPI Initial Comments: Initial Comments - Free Text/Narative: Reuben is a 65-year-old man who presented to the ER this afternoon with 1 day history of worsening shortness of breath and severe cough. He and his were found to be positive for COVID-19 on May 26, 2020. He states that the first few days after this, he did have more cough and cold type symptoms, then started to feel somewhat better. However, about 24 hours ago, he started feeling very f atigued, having some body aches and chills, and now this morning developed severe shortness of breath. They were both seen at [facility] clinic yesterday, were told there was no issues and were sent home. His reports that they were not given any education as far as what to watch out for for COVID-19, were not given any kind of supplies at home including albuterol. Reuben reports a past medical history of type 2 diabetes mellitus, for which he is on glyburide, Metformin, and Invokana; essential hypertension, for which he is on lisinopril and amlodipine. Past Medical History HEENT History: Reports: Hard of Hearing, Impaired Vision Other HEENT History: wears glasses Cardiovascular History: Reports: High Cholesterol, Hypertension Musculoskeletal History: Reports: Arthritis, Other (See Below) Other Musculoskeletal History: degenerative disc disease. lumbar disc herniation w/radiculopathy. stenosis of lumbar region Endocrine/Metabolic History: Reports: Diabetes, Type II - Infectious Disease History Infectious Disease History: Reports: Novel Coronavirus - Past Surgical History GI Surgical History: Reports: Colonoscopy Male Surgical History: Reports: Vasectomy Social & Family History - Family History Family Medical History: No Pertinent Family History - Tobacco Use Tobacco Use Status *Q: Never Tobacco User Second Hand Smoke Exposure: No - Caffeine Use Caffeine Use: Reports: Coffee - Alcohol Use Days Per Week of Alcohol Use: 3 Number of Drinks Per Day: 3 Total Drinks Per Week: 9 - Recreational Drug Use Recreational Drug Use: No H&P Review of Systems - Review of Systems: Review Of Systems: See Below Review of Systems Comment:: General: See HPI HEENT: No headache or vertigo, no difficulty with speaking or swallowing Cardiovascular: No chest pain or palpitations, no orthopnea or PND Respiratory: See HPI Gastrointestinal: No nausea or vomiting, no diarrhea or constipation, no hematochezia or melena Endocrine: No abnormal rashing or bruising, no intolerance to heat or cold Integumentary: No lesions or rashes Musculoskeletal: No myalgias or arthralgias Psychological: No increased anxiety or depressive type symptoms Rest of the review of systems is complete and negative Exam - Exam Exam: See Below - Vital Signs Vital Signs: Last Vital Signs Temp 98.9 F 04/30/21 08:00 Pulse 83 06/06/20 08:00 Resp 28 H 06/06/20 08:00 BP 146/69 H 06/06/20 08:00 Pulse Ox 97 06/06/20 08:00 Weight: 174 lb - Exam Physical Exam Comments:: General: Reuben is a 65-year-old man who appears quite uncomfortable with his breathing, but who does not appear to actually be in respiratory distress. His respiratory rate is around 20-25, he is not using any accessory muscles to breathe. Oropharynx is clear, mucous membranes are moist Neck: Supple, no lymphadenopathy Heart: Regular rate and rhythm, 1 out of 6 systolic murmur heard over the left sternal border Lungs: Widespread rhonchi and crackles in both bases. He has fairly good lung sounds at the apices, no expiratory wheezing heard PA and lateral chest x-ray done in the ER shows a large amount of infiltrate and congestion As his D-dimer was 1900, ER did do a CT of the chest, it did not show any emboli or areas of pneumonia - Discharge Data Discharge Date: 06/12/20 Discharge Disposition: Home, Self-Care 01 Condition: Good - Referral to Home Health Primary Care Physician: Inge Tripp NP - Discharge Diagnosis/Problem(s) (1) Pneumonia due to COVID-19 virus SNOMED Code(s): 001068877758571111 ICD Code: U07.1 - COVID-19; J12.82 - PNEUMONIA DUE TO CORONAVIRUS DISEASE 2019 Status: Acute Priority: High Current Visit: Yes Onset Date: ~06/04/20 - Patient Instructions Diet: Limited Carb Other/Special Instructions: Continue taking medications as prescribed upon discharge. Supplemental oxygen at least 2 L/min if shortness of breath or heavy breathing ensues. Activity and diet are as tolerated. Follow-up for echocardiographic study. Blood thinners are to continue for at least 14 days to prevent against hypercoagulable state and the development of clots associated with acute COVID-19. If you experience any signs or symptoms that warrant this admission please do not hesitate to call your primary care physician or present to an urgent care/emergency department for any immediate evaluation. - Discharge Plan *PRESCRIPTION DRUG MONITORING PROGRAM REVIEWED*: No *COPY OF PRESCRIPTION DRUG MONITORING REPORT IN PATIENT SOFIA: No Prescriptions/Med Rec: Enoxaparin [Lovenox] 80 mg SUBCUT Q12HR 14 Days #28 syringe predniSONE [Prednisone] See Taper PO ACBREAKFAST #28 tablet Benzonatate [Tessalon Perle] 100 mg PO TID PRN #90 capsule PRN Reason: Cough Home Medications: Home Meds Lisinopril 5 mg PO DAILY 08/03/14 [History] atorvaSTATin Calcium [Atorvastatin Calcium] 20 mg PO BEDTIME 08/03/14 [History] glyBURIDE [Glyburide] 10 mg PO BIDMEALS 08/03/14 [History] metFORMIN [Glucophage] 1,000 mg PO BIDMEALS 08/03/14 [History] Aspirin [Aspirin EC] 81 mg PO DAILY 06/05/20 [History] Canagliflozin [Invokana] 100 mg PO DAILY 06/05/20 [History] Ondansetron [Zofran ODT] 4 mg PO Q8H PRN 06/05/20 [History] amLODIPine Besylate [Amlodipine Besylate] 5 mg PO DAILY 06/05/20 [History] Ascorbic Acid [Vitamin C] 500 mg PO BID tablet 06/12/20 [Rx] Benzonatate [Tessalon Perle] 100 mg PO TID PRN #90 capsule 06/12/20 [Rx] Enoxaparin [Lovenox] 80 mg SUBCUT Q12HR 14 Days #28 syringe 06/12/20 [Rx] predniSONE [Prednisone] See Taper PO ACBREAKFAST #28 tablet 06/12/20 [Rx] Oxygen Therapy Mode: Nasal Cannula (As needed shortness of breath.) Oxygen Flow Rate (L/min): 2 Forms: ED Department Discharge Referrals: Inge Tripp NP [Primary Care Provider] - - Discharge Summary/Plan Comment DC Time >30 min.: Yes - General Info Date of Service: 06/12/20 Admission Dx/Problem (Free Text: Sepsis. COVID-19 pneumonitis/pneumonia. Acute hypoxic respiratory failure. Subjective Update: Patient seen and examined at bedside prior to discharge. Only notable complaint is ongoing cough without sputum production. Patient requested Tessalon Perles upon going home. Endorses no other specific complaints or concerns. No new nursing concerns. No overnight events. - Patient Data Vitals - Most Recent: Last Vital Signs Temp 97.7 F 06/12/20 04:56 Pulse 43 L 06/12/20 04:56 Resp 18 06/12/20 04:56 BP 137/62 06/12/20 04:56 Pulse Ox 95 06/12/20 04:56 Weight - Most Recent: 174 lb I&O - Last 24 hours: Intake & Output 06/11/20 06/12/20 06/12/20 22:59 06:59 14:59 Intake Total 660 250 Balance 660 250 Lab Results - Last 24 hrs: Laboratory Results - last 24 hr 06/11/20 06/11/20 06/11/20 Range/Units 08:07 11:46 16:57 POC Glucose 166 H 286 H 295 H (70-99) mg/dL 06/11/20 Range/Units 20:41 POC Glucose 233 H (70-99) mg/dL Med Orders - Current: Current Medications Acetaminophen (Acetaminophen 325 Mg Tab) 650 mg PO Q4H PRN PRN Reason: Pain (Mild 1-3)/fever Albuterol (Albuterol 6.7 Gm Inhaler) 0 gm INH Q2H PRN PRN Reason: Shortness of Breath Last Admin: 06/07/20 06:10 Dose: 2 puff Documented by: Amlodipine Besylate (Amlodipine 5 Mg Tab) 5 mg PO DAILY [facility] Last Admin: 06/11/20 08:13 Dose: 5 mg Documented by: Ascorbic Acid (Ascorbic Acid 500 Mg Tab) 500 mg PO BID [facility] Last Admin: 06/11/20 20:47 Dose: 500 mg Documented by: Aspirin (Aspirin 81 Mg Tab.Ec) 81 mg PO DAILY [facility] Last Admin: 06/11/20 08:13 Dose: 81 mg Documented by: Atorvastatin Calcium (Atorvastatin 20 Mg Tab) 20 mg PO BEDTIME [facility] Last Admin: 06/11/20 20:47 Dose: 20 mg Documented by: Benzocaine/Menthol (Benzocaine/Cetylpyridinium/Menthol Lozenge) 1 lozenge MUCMEM Q1H PRN PRN Reason: Cough Last Admin: 06/11/20 21:10 Dose: 1 lozenge Documented by: Dexamethasone (Dexamethasone 4 Mg/Ml Sdv) 6 mg IVPUSH DAILY [facility] Stop: 06/12/20 09:01 Last Admin: 06/11/20 08:13 Dose: 6 mg Documented by: Dextrose/Water (50% Dextrose In Water 50 Ml Syringe) 50 ml IV Q15M PRN PRN Reason: Hypoglycemia Enoxaparin Sodium (Enoxaparin 80 Mg/0.8 Ml Syringe) 80 mg SUBCUT Q12HR [facility] Last Admin: 06/11/20 20:48 Dose: 80 mg Documented by: Glucagon (Glucagon,Human Recombinant 1 Mg Vial) 1 mg IM Q15M PRN PRN Reason: Hypoglycemia Insulin Human Lispro (Insulin Lispro 100 Units/Ml 3 Ml Vial) 0 unit SUBCUT WITHMEALSANDBED [facility]; Protocol Last Admin: 06/11/20 21:08 Dose: 4 units Documented by: Lisinopril (Lisinopril 5 Mg Tab) 5 mg PO DAILY [facility] Last Admin: 06/11/20 08:13 Dose: 5 mg Documented by: Canagliflozin [ Invokana] 100 Mg TabletPt Own 100 mg PO DAILY [facility] Last Admin: 06/11/20 08:15 Dose: 100 mg Documented by: Ondansetron HCl (Ondansetron 4 Mg Tab.Dis) 4 mg PO Q6H PRN PRN Reason: nausea, able to take PO Sodium Chloride (Sodium Chloride 0.9% 10 Ml Syringe) 10 ml FLUSH ASDIRECTED PRN PRN Reason: Keep Vein Open Last Admin: 06/11/20 20:47 Dose: 10 ml Documented by: Discontinued Medications Albuterol (Albuterol 0.083% 2.5 Mg/3 Ml Neb Soln) 2.5 mg NEB Q2HR PRN PRN Reason: Dyspnea Enoxaparin Sodium (Enoxaparin 40 Mg/0.4 Ml Syringe) 40 mg SUBCUT DAILY [facility] Last Admin: 06/06/20 08:27 Dose: 40 mg Documented by: Enoxaparin Sodium (Enoxaparin 40 Mg/0.4 Ml Syringe) 40 mg SUBCUT ONETIME ONE Stop: 06/06/20 09:16 Last Admin: 06/06/20 10:17 Dose: 40 mg Documented by: Glyburide (Glyburide 5 Mg Tab) 10 mg PO BIDMEALS [facility] Last Admin: 06/07/20 09:00 Dose: 10 mg Documented by: Remdesivir 200 mg/ Sodium (Chloride) 250 mls @ 250 mls/hr IV ONETIME ONE Stop: 06/05/20 19:16 Last Infusion: 06/05/20 21:45 Dose: Infused Documented by: Remdesivir 100 mg/ Sodium (Chloride) 100 mls @ 100 mls/hr IV Q24H [facility] Stop: 06/09/20 18:59 Last Admin: 06/09/20 18:04 Dose: 100 mls/hr Documented by: Tocilizumab 640 mg/ Sodium (Chloride) 132 mls @ 132 mls/hr IV ONETIME ONE Stop: 06/07/20 12:35 Last Admin: 06/08/20 09:02 Dose: Not Given Documented by: Tocilizumab 640 mg/ Sodium (Chloride) 132 mls @ 132 mls/hr IV ONETIME ONE Stop: 06/09/20 09:59 Last Admin: 06/09/20 12:56 Dose: Not Given Documented by: Tocilizumab 640 mg/ Sodium (Chloride) 132 mls @ 132 mls/hr IV ONETIME ONE Stop: 06/09/20 12:59 Last Infusion: 06/09/20 15:53 Dose: Infused Documented by: Insulin Human Lispro (Insulin Lispro 100 Units/Ml 3 Ml Vial) 5 unit SUBCUT ONETIME ONE Stop: 06/06/20 17:23 Last Admin: 06/06/20 18:10 Dose: 5 units Documented by: Iopamidol (Iopamidol 755 Mg/Ml 100 Ml Bottle) 100 ml IVPUSH ONETIME ONE Stop: 06/05/20 16:59 Last Admin: 06/05/20 17:25 Dose: 66 ml Documented by: Ketorolac Tromethamine (Ketorolac 30 Mg/Ml Sdv) 30 mg IVPUSH Q6H PRN PRN Reason: Pain (moderate 4-6) Metformin HCl (Metformin 500 Mg Tab) 1,000 mg PO BIDMEALS [facility] Last Admin: 06/07/20 09:01 Dose: Not Given Documented by: Ondansetron HCl (Ondansetron 4 Mg Tab.Dis) 4 mg PO Q8H PRN PRN Reason: Nausea - Exam General: Reports: Alert Lungs: Reports: Normal Respiratory Effort, Rales (Mild rales at bases), Other (Nonproductive cough) Cardiovascular: Reports: Regular Rate, Irregular Rhythm (Sinus arrhythmia) GI/Abdominal Exam: Normal Bowel Sounds, Soft, Non-Tender Extremities: Normal Inspection, No Pedal Edema Skin: Reports: Warm Psy/Mental Status: Reports: Normal Affect, Normal Mood
[2020-06-12] MEDS: Ascorbic Acid 500 MG Tab PO SCH (08:42)
[2020-06-12] MEDS: amLODIPine 5 MG Tab PO SCH (08:43)
[2020-06-12] MEDS: Aspirin 81 MG Tab.EC PO SCH (08:43)
[2020-06-12] MEDS: Lisinopril 5 MG Tab PO SCH (08:43)
[2020-06-12] MEDS: Dexamethasone 4 MG/ML SDV IVPUSH SCH (08:43)
[2020-06-12] MEDS: Enoxaparin 80 MG/0.8 ML Syringe SUBCUT SCH (08:44)
[2020-06-12] MEDS: CANAGLIFLOZIN 100 MG PO SCH (08:47)
[2020-06-12] MEDS: Insulin Lispro 100 Units/ML 3 ML Vial SUBCUT SCH ×2 (08:52→12:30)
[2020-06-12 14:09] VITALS: BP 123/54; PULSE 76
== END 2020-06-12 15:40 | disposition home or self-care (01) | DRG 720 ==
LOC: DL.ED 15:19 → DL.MS 17:54
PROVIDERS: ADMIT Family Medicine; ATTEND Hospitalist
PROC: XW033E5 Introduction of Remdesivir Anti-infective into Peripheral Vein, Percutaneous Approach, New Technology Group 5 (ICD-10-PCS; principal; 2020-06-05)
PROC: 5A0955A Assistance with Respiratory Ventilation, Greater than 96 Consecutive Hours, High Flow/Velocity Cannula (ICD-10-PCS; 2020-06-06)
PROC: 8E0ZXY6 Isolation (ICD-10-PCS; 2020-06-06)
PROC: XW033H5 Introduction of Tocilizumab into Peripheral Vein, Percutaneous Approach, New Technology Group 5 (ICD-10-PCS; 2020-06-07)
PROC: XW13325 Transfusion of Convalescent Plasma (Nonautologous) into Peripheral Vein, Percutaneous Approach, New Technology Group 5 (ICD-10-PCS; 2020-06-09)
DX: A41.89 Other specified sepsis (principal); J96.01 Acute respiratory failure with hypoxia; J12.82 Pneumonia due to coronavirus disease 2019; E11.9 Type 2 diabetes mellitus without complications; I10 Essential (primary) hypertension; E78.5 Hyperlipidemia, unspecified; H91.90 Unspecified hearing loss, unspecified ear; H54.7 Unspecified visual loss; E78.00 Pure hypercholesterolemia, unspecified; M19.90 Unspecified osteoarthritis, unspecified site; U07.1 COVID-19; Z79.82 Long term (current) use of aspirin; Z79.899 Other long term (current) drug therapy; Z79.84 Long term (current) use of oral hypoglycemic drugs; Z28.82 Immunization not carried out because of caregiver refusal
CPT/HCPCS: 36415; 36430; 71045; 71260; 80053; 82248; 82728; 82947; 83605; 83615; 84484; 85025; 85379; 86140; 86900; 86901; 87040; 93005; 93010; 94762; 99284; 99285-25; A9270-GY; J1100; J1650; J1815-GY; J3262; J7050; P9017; Q9967